=== PATIENT | female | born 1945 | race Caucasian/White ===

== ENCOUNTER → 2016-10-27 | Outpatient (CLI) | payer MEDICARE, OTHER ==
--- NOTE | 2016-10-27 10:59 | BD ---
EXAMINATION TYPE: MG DEXA axial skeleton. DATE OF EXAM: 10/27/2016 10:44 AM COMPARISON: 08.26.2013 DEXA bone scan. CLINICAL HISTORY: M85.9 KNOWN OSTEOPENIA Height: 64.3 Weight: 157 FRAX RISK QUESTIONS: Alcohol (3 or more units per day): NO Family History (Parent hip fracture): YES...AND BROKEN HIP ALSO Glucocorticoids (More than 3mos): NO (Ex: prednisone, prednisolone, methylprednisolone, dexamethasone, and hydrocortisone). History of Fracture in Adulthood: NO Secondary Osteoporosis: NO 1. Type 1 Diabetes: NO 2. Hyperthyroidism: NO 3. Menopause before 45: NO 4. Malnutrition: NO 5. Chronic liver disease: NO Rheumatoid Arthritis: NO Current Tobacco Use: NO RISK FACTORS HISTORY OF: Family History of Osteoporosis: YES HER PATERNAL AUNT, WITH A BROKEN HIP Active: SOMEWHAT Diet low in dairy products/other sources of calcium: NO Postmenopausal woman: YES ABOUT 51 YRS OLD Adrenal Insufficiency: NO MEDICATIONS: Additional Medications: CALCIUM AND VITAMIN D, BP MEDS, Additional History: NONE TO NOTE EXAM MEASUREMENTS: Bone mineral densitometry was performed using the [employer] System. Bone mineral density as measured about the Lumbar spine is: ----- L1-L4(G/cm2): 1.006 T Score Values are as follows: ----- L1: -0.7 ----- L2: -1.6 ----- L3: -1.8 ----- L4: -1.7 ----- L1-L4: -1.5 Bone mineral density has: Decreased -1.6% since study of: 08.26.2013 Bone mineral density about the R hip (g/cm2): 0.832 Bone mineral density about the L hip (g/cm2): 0.841 T Score values are as follows: -----R Neck: -1.1 -----L Neck: -1.3 -----R Intertrochanter: -2.0 -----L Intertrochanter: -1.9 Bone mineral density has: Decreased -4.1% since study of: 08.26.2013 FRAX %'S: 15.6% FOR A MAJOR OSTEOPOROTIC FX AND 4.8% FOR A HIP FX.......PROBABILITY IN 10 YRS RACHELLE E IMPRESSION: Osteopenia (T Score between -2.5 and -1 as noted by T score values in the low back and both hips omar ins present. Bone density is slightly decreased or diminished from prior. There remains slightly inc reased risk of fracture and the patient may be considered for treatment. Re-Screen 1-2 years. NOTE: T-SCORE=SD OF THE YOUNG ADULT MEAN.
--- NOTE | 2016-10-28 11:11 | MM ---
Reason for exam: screening (asymptomatic). Last mammogram was performed 1 year and 1 month ago. History: Patient is postmenopausal. Family history of breast cancer in mother at age 80. Benign stereotactic core biopsy of the left breast, December 09, 1998. Core biopsy of the left breast. Physical Findings: A clinical breast exam by your physician is recommended on an annual basis and results should be correlated with mammographic findings. MG 3D Screening Mammo W/Cad Bilateral CC and MLO view(s) were taken. Prior study comparison: September 22, 2015, bilateral MG screening mammo w CAD. September 18, 2014, bilateral MG screening mammo w CAD. There are scattered fibroglandular densities. Previous mammotome biopsy in the left breast. There is chronic nodularity bilaterally. Asymmetric breast tissue in the right breast. No significant changes when compared with prior studies. ASSESSMENT: Benign, BI-RAD 2 RECOMMENDATION: Routine screening mammogram of both breasts in 1 year.
== END | disposition home or self-care (01) ==
LOC: RADMAMWWP 10:03
PROVIDERS: ATTEND Obstetrics & Gynecology
DX: Z12.31 Encounter for screening mammogram for malignant neoplasm of breast (principal); M85.88 Other specified disorders of bone density and structure, other site
CPT/HCPCS: 77080; 77063; G0202

== ENCOUNTER → 2016-11-08 | Outpatient (CLI) | payer MEDICARE, OTHER ==
[2016-11-08 12:56] LABS: Blood Urea Nitrogen 18 mg/dL (7-17); Non-African American GFR(MDRD) >60 (>60 ml/min/1.73 sqM)
--- NOTE | 2016-11-08 13:57 | CT ---
EXAMINATION TYPE: CT abdomen pelvis w con DATE OF EXAM: 11/08/2016 1:39 PM HISTORY: Mid Abd pain with bowel changes per patient. CT DLP: 710.6mGycm Automated Exposure Control for Dose Reduction was Utilized. CONTRAST: CT scan of the abdomen and pelvis is performed with IV Contrast, patient injected with 100 mL of Omni paque 300. COMPARISON: None. FINDINGS: LUNG BASES: Heart size is mildly enlarged. Dependent atelectasis in both lung bases is present. LIVER/GB: No significant abnormality is appreciated. PANCREAS: No significant abnormality is seen. SPLEEN: No significant abnormality is seen. ADRENALS: No significant abnormality is seen. KIDNEYS: There is 2 mm nonobstructing calculus lower pole level left kidney seen on coronal image 48. Symmetric cortical medullary uptake and excretion from both kidneys without evidence of hydronephros is bilaterally. There is subcentimeter low dense lesion that is too small to further characterize upp er pole level right kidney on series 5 image 22 presumed benign. BOWEL: The oral contrast reaches level of the distal sigmoid colon. There is no suspicious small or l arge bowel dilatation seen. Normal contrast-filled appendix is noted. Sigmoid colonic diverticulosis is present. There is no convincing CT evidence for acute diverticulitis. UTERUS/ADNEXA: Prominent right-sided pelvic phlebolith is seen on axial image 77. Uterus and both ova krystin are unremarkable. LYMPH NODES: No greater than 1cm abdominal or pelvic lymph nodes are appreciated. OSSEOUS STRUCTURES: No significant abnormality is seen. OTHER: No significant additional abnormality is seen. IMPRESSION: No significant acute finding is seen to account for patient's clinical symptoms.
== END | disposition home or self-care (01) ==
LOC: RADCTMAIN 12:19
PROVIDERS: ATTEND Family Medicine
DX: R10.9 Unspecified abdominal pain (principal)
CPT/HCPCS: 82565; 84520; 74177; 36415; Q9967

== ENCOUNTER → 2017-12-08 | Outpatient (CLI) | payer MEDICARE, OTHER ==
[2017-12-08 16:24] LABS: Gliadin AB IgA, Unit <0.2 U/mL
--- NOTE | 2017-12-11 07:18 | MM ---
Reason for exam: screening (asymptomatic). Last mammogram was performed 1 year and 1 month ago. History: Patient is postmenopausal. Family history of breast cancer in mother at age 80. Benign stereotactic core biopsy of the left breast, December 09, 1998. Core biopsy of the left breast. Physical Findings: A clinical breast exam by your physician is recommended on an annual basis and results should be correlated with mammographic findings. MG Screening Mammo w CAD Bilateral CC and MLO view(s) were taken. Prior study comparison: October 27, 2016, bilateral MG 3d screening mammo w/cad. September 22, 2015, bilateral MG screening mammo w CAD. The breast tissue is heterogeneously dense. This may lower the sensitivity of mammography. Previous mammotome biopsy in the left breast. There is chronic nodularity bilaterally. There is no discrete abnormality. ASSESSMENT: Benign, BI-RAD 2 RECOMMENDATION: Routine screening mammogram of both breasts in 1 year.
== END | disposition home or self-care (01) ==
LOC: RADMAMWWP 10:24
PROVIDERS: ATTEND Obstetrics & Gynecology
DX: Z12.31 Encounter for screening mammogram for malignant neoplasm of breast (principal); K58.0 Irritable bowel syndrome with diarrhea
CPT/HCPCS: 77067; 83516; 85652; 86140

== ENCOUNTER → 2018-12-13 | Outpatient (CLI) | payer MEDICARE ==
--- NOTE | 2018-12-14 12:57 | MM ---
Reason for exam: screening (asymptomatic). Last mammogram was performed 1 year ago. History: Patient is postmenopausal. Family history of breast cancer in mother at age 80. Benign stereotactic core biopsy of the left breast, December 09, 1998. Core biopsy of the left breast. Physical Findings: A clinical breast exam by your physician is recommended on an annual basis and results should be correlated with mammographic findings. MG 3D Screening Mammo W/Cad Bilateral CC and MLO view(s) were taken. Prior study comparison: December 08, 2017, bilateral MG screening mammo w CAD. October 27, 2016, bilateral MG 3d screening mammo w/cad. The breast tissue is heterogeneously dense. This may lower the sensitivity of mammography. Previous mammotome biopsy in the left breast. There is chronic nodularity in the left breast. There is no discrete abnormality. ASSESSMENT: Benign, BI-RAD 2 RECOMMENDATION: Routine screening mammogram of both breasts in 1 year.
== END | disposition home or self-care (01) ==
LOC: RADMAMWWP 12:47
PROVIDERS: ATTEND Obstetrics & Gynecology
DX: Z12.31 Encounter for screening mammogram for malignant neoplasm of breast (principal)
CPT/HCPCS: 77063; 77067

== ENCOUNTER → 2018-12-14 | Outpatient (CLI) | payer MEDICARE ==
--- NOTE | 2018-12-17 13:12 | BD ---
EXAMINATION TYPE: Axial Bone Density DATE OF EXAM: 12/14/2018 COMPARISON: NONE CLINICAL HISTORY: Height: Weight: FRAX RISK QUESTIONS: Alcohol (3 or more units per day): Family History (Parent hip fracture): Glucocorticoids (More than 3mos): (Ex: prednisone, prednisolone, methylprednisolone, dexamethasone, and hydrocortisone). History of Fracture in Adulthood: Secondary Osteoporosis: 1. Type 1 Diabetes: no 2. Hyperthyroidism: no 3. Menopause before 45: no 4. Malnutrition: no 5. Chronic liver disease: no Rheumatoid Arthritis: no Current Tobacco Use: no RISK FACTORS HISTORY OF: Family History of Osteoporosis: yes Active: yes Diet low in dairy products/other sources of calcium: no Postmenopausal woman: age 48 Lost more than 2 inches in height since high school: no MEDICATIONS: losartan, zinc, restasis, atorvastatin, hydrocortisone cream, vitamins, triamcinolone, r equip Additional History: EXAM MEASUREMENTS: Bone mineral densitometry was performed using the [employer] System. Bone mineral density as measured about the Lumbar spine is: ----- L1-L4(G/cm2): 1.005 T Score Values are as follows: ----- L2: -1.9 ----- L3: -1.3 ----- L4: -1.7 ----- L1-L4: -1.5 Bone mineral density has: increased 0.7 % since study of: 04.29.2017 Bone mineral density about the R hip (g/cm2): 0.916 Bone mineral density about the L hip (g/cm2): 0.880 T Score values are as follows: -----R Neck: -0.9 -----L Neck: -1.1 -----R Total: -1.3 -----L Total: -1.6 Bone mineral density has: decreased-1.0 % since study of: 04.29.2017 IMPRESSION: Osteopenia NOTE: T-SCORE=SD OF THE YOUNG ADULT MEAN.
== END | disposition home or self-care (01) ==
LOC: RADBDWWP 14:06
PROVIDERS: ATTEND Obstetrics & Gynecology
DX: M85.851 Other specified disorders of bone density and structure, right thigh (principal); M85.852 Other specified disorders of bone density and structure, left thigh; M85.88 Other specified disorders of bone density and structure, other site
CPT/HCPCS: 77080

== ENCOUNTER → 2020-02-24 | Outpatient (CLI) | payer MEDICARE ==
--- NOTE | 2020-02-26 10:23 | MM ---
Reason for exam: screening (asymptomatic). Last mammogram was performed 1 year and 2 months ago. History: Patient is postmenopausal. Family history of breast cancer in mother at age 80. Benign stereotactic core biopsy of the left breast, December 09, 1998. Core biopsy of the left breast. Physical Findings: A clinical breast exam by your physician is recommended on an annual basis and results should be correlated with mammographic findings. MG 3D Screening Mammo W/Cad Bilateral CC and MLO view(s) were taken. Prior study comparison: December 13, 2018, bilateral MG 3d screening mammo w/cad. December 08, 2017, bilateral MG screening mammo w CAD. Previous mammotome biopsy in the left breast. Focal asymmetry right breast. ASSESSMENT: Benign, BI-RAD 2 RECOMMENDATION: Routine screening mammogram of both breasts in 1 year.
== END | disposition home or self-care (01) ==
LOC: RADMAMWWP 10:30
PROVIDERS: ATTEND Obstetrics & Gynecology
DX: Z12.31 Encounter for screening mammogram for malignant neoplasm of breast (principal)
CPT/HCPCS: 77063; 77067

== ENCOUNTER → 2021-02-24 | Outpatient (CLI) | payer MEDICARE ==
--- NOTE | 2021-02-25 14:50 | MM ---
Reason for exam: screening (asymptomatic). Last mammogram was performed 1 year ago. History: Patient is postmenopausal. Family history of breast cancer in mother at age 80. Benign stereotactic core biopsy of the left breast, December 09, 1998. Core biopsy of the left breast. Took hormonal contraceptives for 4 years. Physical Findings: A clinical breast exam by your physician is recommended on an annual basis and results should be correlated with mammographic findings. MG 3D Screening Mammo W/Cad Bilateral CC and MLO view(s) were taken. Prior study comparison: February 24, 2020, bilateral MG 3d screening mammo w/cad. December 13, 2018, bilateral MG 3d screening mammo w/cad. There are scattered fibroglandular densities. Left biopsy clip. ASSESSMENT: Benign, BI-RAD 2 RECOMMENDATION: Routine screening mammogram of both breasts in 1 year.
== END | disposition home or self-care (01) ==
LOC: RADMAMWWP 10:51
PROVIDERS: ATTEND Obstetrics & Gynecology
DX: Z12.31 Encounter for screening mammogram for malignant neoplasm of breast (principal)
CPT/HCPCS: 77063; 77067

== ENCOUNTER → 2022-02-25 | Outpatient (CLI) | payer MEDICARE ==
--- NOTE | 2022-02-28 08:14 | MM ---
Reason for Exam: Screening (asymptomatic). Last screening mammogram was performed 12 month(s) ago. Patient History: Menarche at age 12. First Full-Term at age 24. Postmenopausal. Patient used Hormonal Contraceptives for 4 years. Core Biopsy on the Left side. 12/09/1998, Benign Stereotactic Core Biopsy on the left side. Mother had breast cancer, age 80. Risk Values: Lis 5 year model risk: 4.6%. NCI Lifetime model risk: 8.1%. Prior Study Comparison: 10/27/2016 Bilateral Screening Mammogram, [facility]. 12/08/2017 Bilateral Screening Mammogram, [facility]. 12/13/2018 Bilateral Screening Mammogram, [facility]. 02/24/2020 Bilateral Screening Mammogram, [facility]. 02/24/2021 Bilateral Screening Mammogram, [facility]. Tissue Density: There are scattered fibroglandular densities. Findings: Analyzed By CAD. There is a clip in the left breast. There is no suspicious group of microcalcifications or new suspicious mass in either breast. Overall Assessment: Negative, BI-RAD 1 Management: Screening Mammogram of both breasts in 1 year. A clinical breast exam by your physician is recommended on an annual basis and results should be correlated with mammographic findings. Electronically signed and approved by: Reilly Lantigua DO
--- NOTE | 2022-02-28 11:34 | BD ---
EXAMINATION TYPE: Axial Bone Density DATE OF EXAM: 02/25/2022 COMPARISON: NONE CLINICAL HISTORY: 76 year old Female. ICD-10 CODE: M85.88 DISORDER OF BONE Height: 65 Weight: 148.2 FRAX RISK QUESTIONS: Alcohol (3 or more units per day): no Family History (Parent hip fracture): no Glucocorticoids (More than 3mos): no (Ex: prednisone, prednisolone, methylprednisolone, dexamethasone, and hydrocortisone). History of Fracture in Adulthood: no Secondary Osteoporosis: 1. Type 1 Diabetes: no 2. Hyperthyroidism: no 3. Menopause before 45: no 4. Malnutrition: no 5. Chronic liver disease: no Rheumatoid Arthritis: no Current Tobacco Use: no RISK FACTORS HISTORY OF: Surgery to Spine/Hip(right/left)/Wrist (right/left): no Family History of Osteoporosis: no Active: no Diet low in dairy products/other sources of calcium: no Postmenopausal woman: yes Lost more than 2 inches in height since high school: no MEDICATIONS: calcium Additional History: EXAM MEASUREMENTS: Bone mineral densitometry was performed using the [employer] System. Bone mineral density as measured about the Lumbar spine is: ----- L1-L4(G/cm2): 0.979 T Score Values are as follows: ----- L1: -1.2 ----- L2: -1.8 ----- L3: -1.6 ----- L4: -2.1 ----- L1-L4: -1.7 Bone mineral density has: decreased -1.8 % since study of: 10.27.2016 Bone mineral density about the R hip (g/cm2): 0.808 Bone mineral density about the L hip (g/cm2): .0816 T Score values are as follows: -----R Neck: -1.7 -----L Neck: -1.6 -----R Total: -1.6 -----L Total: -1.7 Bone mineral density has: decreased -4.3 % since study of: 10.27.2016 FRAX%s: The graph provided illustrates a 13.5% chance for a major osteoporotic fx and a 3.3% chance f or the hips probability for fx in 10 years time. IMPRESSION: Osteopenia (T Score between -2.5 and -1). There is slightly increased risk of fracture and the patient may be considered for treatment. Re-Screen 2-5 years. NOTE: T-SCORE=SD OF THE YOUNG ADULT MEAN.
== END | disposition home or self-care (01) ==
LOC: RADMAMWWP 13:19
PROVIDERS: ATTEND Obstetrics & Gynecology
DX: Z12.31 Encounter for screening mammogram for malignant neoplasm of breast (principal); M85.88 Other specified disorders of bone density and structure, other site
CPT/HCPCS: 77063; 77067; 77080

== ENCOUNTER → 2022-04-26 | Outpatient (CLI) | payer MEDICARE ==
--- NOTE | 2022-04-26 11:56 | CT ---
EXAMINATION TYPE: CT sinus wo con DATE OF EXAM: 04/26/2022 COMPARISON: None HISTORY: sinusitis CT DLP: 588 mGycm. Automated Exposure Control for Dose Reduction was Utilized. TECHNIQUE: CT scan of the sinuses is performed without contrast, axial images are obtained, coronal r eformatted images are also reviewed. FINDINGS: The paranasal sinuses including the frontal, ethmoid, sphenoid, and maxillary sinuses bila terally are well-aerated without abnormal opacification. Nasal septal deviation. The ostiomeatal com plex is patent bilaterally on the coronal images. Visualized portion of mastoid air cells show no abnormal opacification. The globes are intact bilate rally. Degenerative changes noted intracranially. Dental artifact limits portions of the field of vi ew secondary to the artifact IMPRESSION: 1. The sinuses are clear and the ostiomeatal complex is patent bilaterally. 2. Nasal septal deviation.
== END | disposition home or self-care (01) ==
LOC: RADCTMAIN 11:14
PROVIDERS: ATTEND Otolaryngology
DX: J32.9 Chronic sinusitis, unspecified (principal)
CPT/HCPCS: 70486

== ENCOUNTER 2023-01-08 21:04 | Inpatient (IN) | payer MEDICARE ==
[2023-01-08] MEDS ORDERED: NITROGLYCERIN OINT 1 INCH/GM PACKET TOPICAL STA (21:26)
[2023-01-08] MEDS ORDERED: FUROSEMIDE 10 MG/ML 4 ML VIAL IV STA (21:35)
[2023-01-08 21:52] LABS: Basophils % (A) 0 %; Eosinophils # (A) 0.1 k/uL (0-0.7); Eosinophils % (A) 1 %; HCT 39.4 % (34.0-46.0); HGB 12.7 gm/dL (11.4-16.0); Hypochromasia Slight; Lymphocytes % (A) 28 %; MCHC 32.1 g/dL (31.0-37.0); MCV 99.7 fL (80.0-100.0); Mean Platelet Volume 10.3; Monocytes # (A) 0.6 k/uL (0-1.0); Monocytes % (A) 5 %; Neutrophils % (A) 64 %; Platelet Count 242 k/uL (150-450); RBC 3.95 m/uL (3.80-5.40); RDW 14.3 % (11.5-15.5); WBC 10.9 k/uL (3.8-10.6)
--- NOTE | 2023-01-08 21:55 | XR ---
EXAMINATION TYPE: XR chest 2V DATE OF EXAM: 01/08/2023 9:49 PM COMPARISON: No relevant priors TECHNIQUE: XR chest 2V . CLINICAL INDICATION:Female, 77 years old with history of difficulty breathing; FINDINGS: Lungs/Pleura: Hazy appearance of the mid to lower lobes bilaterally suggestive of interstitial edema. Blunting of the bilateral costophrenic angles suggesting at least a small pleural effusion. No pneum othorax. Pulmonary vascularity: Mild pulmonary vascular congestion. Heart/mediastinum: Cardiomediastinal silhouette is enlarged. Musculoskeletal: Multiple level degenerative disc disease changes seen throughout the spine. IMPRESSION: Cardiomegaly, pulmonary vascular congestion and bilateral pleural effusions. Correlate with BNP for c ongestive heart failure.
[2023-01-08 22:04] LABS: Albumin 3.9 g/dL (3.5-5.0); Calcium 9.1 mg/dL (8.4-10.2); Total Bilirubin 1.1 mg/dL (0.2-1.3); Total Protein 6.9 g/dL (6.3-8.2)
[2023-01-08] MEDS ORDERED: ONDANSETRON 4 MG/2 ML VIAL IVP STA ×2 (22:07→22:08)
[2023-01-08 22:08] LABS: Potassium 5.6 mmol/L (3.5-5.1)
[2023-01-08 22:47] LABS: INR 1.2 (<1.2)
[2023-01-08 22:50] LABS: Partial Thromboplastin Time 18.6 sec (22.0-30.0)
[2023-01-08 23:12] LABS: VBG PH 7.19 (7.31-7.41)
--- NOTE | 2023-01-09 00:13 | ED ---
General Adult HPI - General Chief complaint: Shortness of Breath Stated complaint: Shortness of breath Time Seen by Provider: 01/08/23 21:18 Source: patient, family (spouse), EMS, RN notes reviewed Mode of arrival: EMS Limitations: no limitations - History of Present Illness Initial comments: Patient is a 77-year-old female presenting to the emergency room via EMS with worsening shortness of breath throughout the day today. Per EMS she was hypoxic with oxygen saturations in the 70s on room air along their arrival with good oxygenation to 92% with the application of 2 L nasal cannula. She also received nebulized treatments by EMS. She recently was diagnosed with congestive heart failure approximately 3 weeks ago by her copier field service technician and underwent an echocardiogram by him as well with an overnight stay at [facility]. Her echocardiogram report is present with the family which demonstrates normal systolic function ejection fraction 55-60% with grade 1 diastolic dysfunction. She reports chest pressure with the inability to take in a deep breath, she denies any reproducible chest pain. She has orthopnea and bilateral lower extr emity edema along with ascites which she reports has slowly worsen despite adherence to her recently prescribed diuretic Bumex for her newly diagnosed congestive heart failure. She reports that she had had some mild shortness of breath with sudden increase in shortness of breath earlier prior to calling EMS for transportation to the hospital. She complains of abdominal pain related to her swelling and nausea without vomiting, she also reports some constipation. She denies any cough, congestion, headache, dizziness, confusion, weakness, fevers or chills. In addition to her newly diagnosed congestive heart failure she has a past medical history significant for multiple myeloma, hyperlipidemia, hypertension and osteoarthritis. - Related Data Allergies Allergy/AdvReac Type Severity Reaction Status Date / Time adhesive Allergy Rash/Hives Verified 01/08/23 21:33 Penicillins AdvReac Diarrhea Verified 01/08/23 21:32 Review of Systems ROS Statement: Those systems with pertinent positive or pertinent negative responses have been documented in the HPI. ROS Other: All systems not noted in ROS Statement are negative. Past Medical History Past Medical History: Cancer, Heart Failure, Hyperlipidemia, Hypertension, Osteoarthritis (OA) Additional Past Medical History / Comment(s): Multiple Myeloma, covid History of Any Multi-Drug Resistant Organisms: None Reported Past Surgical History: Bladder Surgery Past Psychological History: Anxiety Smoking Status: Never smoker Past Alcohol Use History: None Reported Past Drug Use History: None Reported General Exam Limitations: no limitations General appearance: alert, in no apparent distress Head exam: Present: atraumatic, normocephalic, normal inspection Eye exam: Present: normal appearance, PERRL, EOMI. Absent: scleral icterus, conjunctival injection, periorbital swelling ENT exam: Present: normal exam, mucous membranes moist Neck exam: Present: normal inspection Respiratory exam: Present: rales, decreased breath sounds, other (Hypoxemia and orthopnea. Tachypnea improved with supplemental oxygen.). Absent: wheezes, rhonchi, chest wall tenderness, accessory muscle use Cardiovascular Exam: Present: regular rate, normal rhythm, normal heart sounds. Absent: systolic murmur, diastolic murmur, rubs, gallop, clicks GI/Abdominal exam: Present: distended, normal bowel sounds. Absent: tenderness, guarding, rebound Rectal exam: Present: deferred Extremities exam: Present: pedal edema (Bilateral +3) Back exam: Present: normal inspection Neurological exam: Present: alert, oriented X3, CN II-XII intact Psychiatric exam: Present: normal affect, normal mood Skin exam: Present: dry, intact, pallor. Absent: rash Course Vital Signs 01/08/23 01/08/23 01/09/23 21:15 22:38 00:00 Temperature 97.3 F L Pulse Rate 106 H 105 H 99 Respiratory 32 H 22 18 Rate Blood Pressure 103/81 98/79 96/58 O2 Sat by Pulse 95 91 L 97 Oximetry Medical Decision Making - Medical Decision Making Was pt. sent in by a medical professional or institution (, PA, PROCESS PLANNER, urgent care, hospital, or usp...) When possible be specific @ -No Did you speak to anyone other than the patient for history (EMS, parent, family, police, friend...)? What history was obtained from this source @ -Yes, spoke with EMS regarding history of presenting illness and presentation at home. Spoke with spouse at bedside regarding further details of current illness past medical history, current medications and most recent hospitalization. Did you review nursing and triage notes (agree or disagree)? Why? @ -I reviewed and agree with nursing and triage notes Were old charts reviewed (outside hosp., previous admission, EMS record, old EKG, old radiological studies, urgent care reports/EKG's, usp records)? Report findings @ -Yes, reviewed 2-D echo report patient had with her from 12/20/2022 which revealed normal systolic function ejection fraction 55-60% with grade 1 diastolic dysfunction. Stress test from [facility] a 2020 also reviewed which was nonischemic without any ST changes. Differential Diagnosis (chest pain, altered mental status, abdominal pain women, abdominal pain men, vaginal bleeding, weakness, fever, dyspnea, syncope, headache, dizziness, GI bleed, back pain, seizure, CVA, palpatations, mental health, musculoskeletal)? @ -Differential Dyspnea: Coronary syndrome, arrhythmia, tamponade, asthma, COPD, pulmonary embolism, pneumonia, pneumothorax, pulmonary effusion, anaphylaxis, diabetic ketoacidosis, flailed chest, pulmonary contusion, diaphragmatic rupture, anemia, neuromuscular, this is not meant to be an all-inclusive list. EKG interpreted by me (3pts min.). @ -First EKG completed at [address] sinus [address] with moderate ST depression in lead II and aVF ventricular rate 108 bpm, AL interval 177 ms, QRS duration 114 ms, QT/QTC 346/409 ms, PRT axes 106, 30, 71 Second EKG EKG completed at 2249 demonstrates time and states tachycardia with again present ST depression in leads 2 and aVF without any significant change compared to 2120 times EKG. Ventricular rate 108 bpm, AL interval 177 ms, QRS duration 144 ms, QT/QTC X-rays interpreted by me (1pt min.). @ -Chest x-ray demonstrates bibasilar vascular congestion and right midlobe congestion along with bilateral small pleural effusions. CT interpreted by me (1pt min.). @ -CT angiogram chest: No pulmonary emboli, bilateral bibasilar consolidation and bilateral pleural effusion. U/S interpreted by me (1pt. min.). @ -Ultrasound of the liver and limited abdomen for ascites completed not interpreted by me report per radiologist shows biliary sludge, hepatic megaly, common bile duct 0.6 cm and small ascites along with right pleural effusion. What testing was considered but not performed or refused? (CT, X-rays, U/S, labs)? Why? @ -None What meds were considered but not given or refused? Why? @ -None Did you discuss the management of the patient with other professionals (duarte hatch i.eTahira Matt, PA, PROCESS PLANNER, lab, RT, psych nurse, social work lecturer, heel finisher, teacher, correction officer head, manager rn case)? Give summary @ -Yes, spoke with vacuum drier tender Dr. Wade regarding patient's presentation and concern for decompensation. He is agreeable to placement in stepdown unit no ny ed for ICU admission. Spoke with Dr. Page regarding patient's presentation and workup along with treatment provided advising recommended admission to stepdown unit for close monitoring and continued treatment for volume overload, he is accepting of admission and denies any further orders at this time. Was smoking cessation discussed for >3mins.? @ -No Was critical care preformed (if so, how long)? @ -35 minutes Were there social determinants of health that impacted care today? How? (Homelessness, low income, unemployed, alcoholism, drug addiction, transportation, low edu. Level, literacy, decrease access to med. care, longterm, rehab)? @ -No Was there de-escalation of care discussed even if they declined (Discuss DNR or withdrawal of care, Hospice)? DNR status @ -Discussed CODE STATUS at length; at this time patient wishes to remain a ful l code and is aware that if further respiratory decline occurs intubation may be necessary during this hospitalization. What co-morbidities impacted this encounter? (DM, HTN, Smoking, COPD, CAD, Cancer, CVA, ARF, Chemo, Hep., AIDS, mental health diagnosis, sleep apnea, morbid obesity)? @ -None Was patient admitted / discharged? Hospital course, mention meds given and route, prescriptions, significant lab abnormalities, going to OR and other pertinent info. @ -77-year-old female presenting to the emergency room with worsening shortness of breath throughout the day today. Per EMS she was hypoxic with oxygen saturations in the 70s on room air along their arrival with good oxygenation to 92% with the application of 2 L nasal cannula. She also received nebulized treatments by EMS. She recently was diagnosed with congestive heart failure approximately 3 weeks ago by her copier field service technician and underwent an echocar diogram by him as well with an overnight stay at [facility]. Her echocardiogram report is present with the family which demonstrates normal systolic function ejection fraction 55-60% with grade 1 diastolic dysfunction. She has been taking Bumex as prescribed with increase in lower extremity swelling and abdominal swelling. Workup initiated with EKG, chest x-ray, CBC, CMP, lactic acid, blood cultures, coags, d-dimer, troponin, and proBNP. On oral nitrates with marginal blood pressure will defer nitro paste at this time for chest pressure and proceed with Lasix due to bilateral lower extremity edema, ascites and bibasilar crackles. Initial EKG with sinus tachycardia with ST depression. Patient with nausea with Zofran. Laboratory results demonstrate CBC with elevated WBC 10.5 no abnormaliti es including differential. Coag's show low PTT elevated INR at 1.2 with normal PT d-dimer elevated 1.64. CMP with slightly hemolyzed potassium at 5.6 sodium 135 chloride 97, carbon dioxide anion gap, BUN 20. Creatinine normal at 0.80 with elevated 331. Lactic acid elevated at 4.4 liver enzymes and alkaline phosphatase elevated AST at 38 mL to 97, alkaline phosphatase 212. ProBNP elevated at 4590, troponin elevated 0.052. Repeat EKG, repeat troponin and repeat potassium along with his blood gases ordered in addition to CTA elevated d-dimer with hypoxia enteritis. Supple oxygen titrated to 4 L to maintain oxygen saturation levels greater than 92%. There is definite pain involved in care and presents as a proceeded. Due to elevated liver enzymes will proceed with ultrasound of the abdomen and liver. Venous blood gases reveal pH of 7.9 with a pCO2 of 61 and a bicarb of 23. Degenerative saturation with nasal cannula oxygen and low blood pressure improved with BiPAP at this time. Repeat EKG shows continued ST depression without ST elevation or significant worsening ST depression. Chest x-ray demonstrates bibasilar pulmonary edema.. Bilateral lung coburn and small bilateral effusions. Nausea improved with Zofran. Ultrasound of the abdomen revealed small ascites. Hepatomegaly, biliary sludge, small right pleural effusion. Repeat troponin elevated 0.5. No indication for further abdominal imaging at this time. CT of the chest angio redemonstrates bilateral vascular congestion and pleural effusion. No evidence of pulmonary emboli. Patient continues to maintain oxygenation levels while on 4 L nasal cannula 96 and 98% with no evidence of respiratory distress on exam. Above findings discussed with patient and spouse and son at length. Advised due to concern for decompensation and low blood pressure along with fluctuating oxygenation levels recommend stepdown admission for continued IV Lasix for congestive heart failure. CODE STATUS reviewed and patient wishes to remain a full code. Spoke with Dr. Wade the vacuum drier tender communications station manager regarding patient presentation and concern for decompensation. He is agreeable to stepdown placement no need for ICU placement at this time. Spoke with Dr. Page on for [facility] services covering for patient's primary care provider Dr. Hanna regarding patient's presentation, workup, laboratory results and treatment to this point advised recommendation to stepdown unit for close monitoring and continued evaluation and treatment of congestive heart failure. He is accepting of admission and denies any further orders at this time. Will repeat troponin and furosemide dosing at [address] orders for echocardiogram in addition to admission orders. Will admit patient in serious condition to stepdown unit under [facility] services for further evaluation and treatment of congestive heart failure. Undiagnosed new problem with uncertain prognosis? @ -No Drug Therapy requiring intensive monitoring for toxicity (Heparin, Nitro, Insulin, Cardizem)? @ -No Were any procedures done? @ -No Diagnosis/symptom? @ -Acute congestive heart Acute, or Chronic, or Acute on Chronic? @ -Acute on chronic Uncomplicated (without systemic symptoms) or Complicated (systemic symptoms)? @ -Complicated Side effects of treatment? @ -No Exacerbation, Progression, or Severe Exacerbation? @ -Severe exacerbation Poses a threat to life or bodily function? How? (Chest pain, [place], NH, pneumonia, PE, COPD, DKA, ARF, appy, cholecystitis, CVA, Diverticulitis, Homicidal, Suicidal, threat to staff... and all critical care pts) @ -No Case discussed with Dr. Short. - Lab Data Result diagrams: 01/08/23 21:35 01/08/23 23:03 Lab Results 01/08/23 01/08/23 01/08/23 Range/Units 21:35 21:35 21:35 WBC 10.9 H (3.8-10.6) k/uL RBC 3.95 (3.80-5.40) m/uL Hgb 12.7 (11.4-16.0) gm/dL Hct 39.4 (34.0-46.0) % MCV 99.7 (80.0-100.0) fL MCH 32.0 (25.0-35.0) pg MCHC 32.1 (31.0-37.0) g/dL RDW 14.3 (11.5-15.5) % Plt Count 242 (150-450) k/uL MPV 10.3 Neutrophils % 64 % Lymphocytes % 28 % Monocytes % 5 % Eosinophils % 1 % Basophils % 0 % Neutrophils # 7.0 (1.3-7.7) k/uL Lymphocytes # 3.0 (1.0-4.8) k/uL Monocytes # 0.6 (0-1.0) k/uL Eosinophils # 0.1 (0-0.7) k/uL Basophils # 0.0 (0-0.2) k/uL Hypochromasia Slight PT 12.0 (9.0-12.0) sec INR 1.2 H (<1.2) APTT 18.6 L (22.0-30.0) sec D-Dimer 1.64 H (<0.60) mg/L FEU VBG pH (7.31-7.41) VBG pCO2 (37-51) mmHg VBG HCO3 (24-28) mmol/L Sodium 135 L (137-145) mmol/L Potassium 5.6 H (3.5-5.1) mmol/L Chloride 97 L (98-107) mmol/L Carbon Dioxide 22 (22-30) mmol/L Anion Gap 16 mmol/L BUN 23 H (7-17) mg/dL Creatinine 0.80 (0.52-1.04) mg/dL Est GFR (CKD-EPI)AfAm 81 (>60 ml/min/1.73 sqM) Est GFR (CKD-EPI)NonAf 71 (>60 ml/min/1.73 sqM) Glucose 331 H (74-99) mg/dL Lactic Ac Sepsis Rflx Plasma Lactic Acid Mando (0.7-2.0) mmol/L Calcium 9.1 (8.4-10.2) mg/dL Total Bilirubin 1.1 (0.2-1.3) mg/dL AST 138 H (14-36) U/L ALT 97 H (4-34) U/L Alkaline Phosphatase 212 H (38-126) U/L Troponin I (0.000-0.034) ng/mL NT-Pro-B Natriuret Pep pg/mL Total Protein 6.9 (6.3-8.2) g/dL Albumin 3.9 (3.5-5.0) g/dL 01/08/23 01/08/2301/08/23 Range/Units 21:35 21:35 21:35 WBC (3.8-10.6) k/uL RBC (3.80-5.40) m/uL Hgb (11.4-16.0) gm/dL Hct (34.0-46.0) % MCV (80.0-100.0) fL MCH (25.0-35.0) pg MCHC (31.0-37.0) g/dL RDW (11.5-15.5) % Plt Count (150-450) k/uL MPV Neutrophils % % Lymphocytes % % Monocytes % % Eosinophils % % Basophils % % Neutrophils # (1.3-7.7) k/uL Lymphocytes # (1.0-4.8) k/uL Monocytes # (0-1.0) k/uL Eosinophils # (0-0.7) k/uL Basophils # (0-0.2) k/uL Hypochromasia PT (9.0-12.0) sec INR (<1.2) APTT (22.0-30.0) sec D-Dimer (<0.60) mg/L FEU VBG pH (7.31-7.41) VBG pCO2 (37-51) mmHg VBG HCO3 (24-28) mmol/L Sodium (137-145) mmol/L Potassium (3.5-5.1) mmol/L Chloride (98-107) mmol/L Carbon Dioxide (22-30) mmol/L Anion Gap mmol/L BUN (7-17) mg/dL Creatinine (0.52-1.04) mg/dL Est GFR (CKD-EPI)AfAm (>60 ml/min/1.73 sqM) Est GFR (CKD-EPI)NonAf (>60 ml/min/1.73 sqM) Glucose (74-99) mg/dL Lactic Ac Sepsis Rflx Plasma Lactic Acid Mando 4.4 H* (0.7-2.0) mmol/L Calcium (8.4-10.2) mg/dL Total Bilirubin (0.2-1.3) mg/dL AST (14-36) U/L ALT (4-34) U/L Alkaline Phosphatase (38-126) U/L Troponin I 0.052 H* (0.000-0.034) ng/mL NT-Pro-B Natriuret Pep 4590 pg/mL Total Protein (6.3-8.2) g/dL Albumin (3.5-5.0) g/dL 01/08/23 01/08/23 01/08/23 Range/Units 22:10 23:03 23:03 WBC (3.8-10.6) k/uL RBC (3.80-5.40) m/uL Hgb (11.4-16.0) gm/dL Hct (34.0-46.0) % MCV (80.0-100.0) fL MCH (25.0-35.0) pg MCHC (31.0-37.0) g/dL RDW (11.5-15.5) % Plt Count (150-450) k/uL MPV Neutrophils % % Lymphocytes % % Monocytes % % Eosinophils % % Basophils % % Neutrophils # (1.3-7.7) k/uL Lymphocytes # (1.0-4.8) k/uL Monocytes # (0-1.0) k/uL Eosinophils # (0-0.7) k/uL Basophils # (0-0.2) k/uL Hypochromasia PT (9.0-12.0) sec INR (<1.2) APTT (22.0-30.0) sec D-Dimer (<0.60) mg/L FEU VBG pH (7.31-7.41) VBG pCO2 (37-51) mmHg VBG HCO3 (24-28) mmol/L Sodium (137-145) mmol/L Potassium 4.4 (3.5-5.1) mmol/L Chloride (98-107) mmol/L Carbon Dioxide (22-30) mmol/L Anion Gap mmol/L BUN (7-17) mg/dL Creatinine (0.52-1.04) mg/dL Est GFR (CKD-EPI)AfAm (>60 ml/min/1.73 sqM) Est GFR (CKD-EPI)NonAf (>60 ml/min/1.73 sqM) Glucose (74-99) mg/dL Lactic Ac Sepsis Rflx Y Plasma Lactic Acid Mando (0.7-2.0) mmol/L Calcium (8.4-10.2) mg/dL Total Bilirubin (0.2-1.3) mg/dL AST (14-36) U/L ALT (4-34) U/L Alkaline Phosphatase (38-126) U/L Troponin I 0.058 H* (0.000-0.034) ng/mL NT-Pro-B Natriuret Pep pg/mL Total Protein (6.3-8.2) g/dL Albumin (3.5-5.0) g/dL 01/08/23 01/09/23 Range/Units 23:03 00:34 WBC (3.8-10.6) k/uL RBC (3.80-5.40) m/uL Hgb (11.4-16.0) gm/dL Hct (34.0-46.0) % MCV (80.0-100.0) fL MCH (25.0-35.0) pg MCHC (31.0-37.0) g/dL RDW (11.5-15.5) % Plt Count (150-450) k/uL MPV Neutrophils % % Lymphocytes % % Monocytes % % Eosinophils % % Basophils % % Neutrophils # (1.3-7.7) k/uL Lymphocytes # (1.0-4.8) k/uL Monocytes # (0-1.0) k/uL Eosinophils # (0-0.7) k/uL Basophils # (0-0.2) k/uL Hypochromasia PT (9.0-12.0) sec INR (<1.2) APTT (22.0-30.0) sec D-Dimer (<0.60) mg/L FEU VBG pH 7.19 L* (7.31-7.41) VBG pCO2 61 H (37-51) mmHg VBG HCO3 23 L (24-28) mmol/L Sodium (137-145) mmol/L Potassium (3.5-5.1) mmol/L Chloride (98-107) mmol/L Carbon Dioxide (22-30) mmol/L Anion Gap mmol/L BUN (7-17) mg/dL Creatinine (0.52-1.04) mg/dL Est GFR (CKD-EPI)AfAm (>60 ml/min/1.73 sqM) Est GFR (CKD-EPI)NonAf (>60 ml/min/1.73 sqM) Glucose (74-99) mg/dL Lactic Ac Sepsis Rflx Plasma Lactic Acid Mando 3.1 H* (0.7-2.0) mmol/L Calcium (8.4-10.2) mg/dL Total Bilirubin (0.2-1.3) mg/dL AST (14-36) U/L ALT (4-34) U/L Alkaline Phosphatase (38-126) U/L Troponin I (0.000-0.034) ng/mL NT-Pro-B Natriuret Pep pg/mL Total Protein (6.3-8.2) g/dL Albumin (3.5-5.0) g/dL - Radiology Data Radiology results: report reviewed, image reviewed Disposition Clinical Impression: Congestive heart failure Disposition: ADMITTED IP TO THIS [facility] Condition: Serious Is patient prescribed a controlled substance at d/c from ED?: No Referrals: Jose Luis Pierre MD [Primary Care Provider] - 1-2 days Time of Disposition: 01:38
--- NOTE | 2023-01-09 00:43 | US ---
EXAM: US Abdomen Complete CLINICAL HISTORY: ITS.REASON US Reason: ascities; elevated alk phos TECHNIQUE: Real-time ultrasound of the abdomen with image documentation. COMPARISON: 11/08/2016 FINDINGS: Liver: The liver measures 18.1 cm. Heterogeneity of the liver. No intrahepatic bile duct dilation. Gallbladder: Sludge is noted within the gallbladder. Gallbladder wall measures 0.49 cm. Negative ultrasound graphic Lopez sign. No gallstones. Common bile duct: Common bile duct measures 0.6 cm. No stones. No dilation. Pancreas: Unremarkable as visualized. Kidneys: The right kidney measures 10.9 x 4.5 x 4.4 cm without hydronephrosis. No stones. Spleen: Unremarkable. No splenomegaly. Aorta: Unremarkable. No abdominal aortic aneurysm. Inferior vena cava: Unremarkable. Free fluid: Small quantity of ascites at the right upper quadrant. Pleural space: Small right pleural effusion. IMPRESSION: 1. Sludge within the gallbladder. 2. Gallbladder wall measures 0.49 cm and is thickened. Clinical correlation is advised. 3. Negative ultrasound graphic Lopez sign. 4. Common bile duct measures 0.6 cm and is prominent. 5. Hepatomegaly. Heterogeneity of the liver. 6. Negative ultrasound Lopez sign. 7. Small quantity of ascites. 8. Small right pleural effusion.
--- NOTE | 2023-01-09 01:05 | CT ---
EXAM: CT Angiography Chest With Intravenous Contrast CLINICAL HISTORY: ITS.REASON CT Reason: dyspnea elevated d dimer TECHNIQUE: Axial computed tomographic angiography images of the chest with intravenous contrast. CTDI is 9 mGy and DLP is 223.2 mGy-cm. This CT exam was performed using one or more of the following dose reduction techniques: automated exposure control, adjustment of the mA and/or kV according to patient size, and/or use of iterative reconstruction technique. MIP reconstructed images were created and reviewed. COMPARISON: No previous studies. FINDINGS: Pulmonary arteries: Central pulmonary arteries are unremarkable. Peripheral branches the pulmonary arteries are unremarkable. Aorta: Atherosclerotic disease of the thoracic aorta. No thoracic aortic aneurysm. Lungs: Patchy consolidation is noted at the lung bases most suggestive of by basilar pneumonia. Minimal scarring at the lung apices. Pleural space: See below. Heart: There is cardiomegaly and bilateral pleural effusions. Consider congestive heart failure. No evidence of RV dysfunction. Thyroid: Heterogeneity of the thyroid gland. Bones/joints: Moderate to severe degenerative disc disease of the thoracic spine and kyphosis. No acute fracture. No dislocation. Soft tissues: Unremarkable. Lymph nodes: Unremarkable. No enlarged lymph nodes. Liver: Fatty infiltration of the liver. IMPRESSION: 1. No central or peripheral pulmonary emboli. 2. Cardiomegaly and bilateral pleural effusions. Consider congestive heart failure. 3. Atherosclerotic disease. 4. Consolidative changes noted at the lung bases. Consider by basilar pneumonia. 5. Fatty liver. <MYCVCSECTION> Communications: 01/09/23 01:12 Call From [facility] on 01/09 01:09 (-04:00)
[2023-01-09] MEDS ORDERED: ACETAMINOPHEN TAB 325 MG TAB PO PRN (01:38)
[2023-01-09] MEDS ORDERED: ONDANSETRON 4 MG/2 ML VIAL IVP PRN (01:38)
[2023-01-09] MEDS ORDERED: NALOXONE 0.4 MG/ML 1 ML VIAL IV PRN (01:38)
[2023-01-09] MEDS ORDERED: FUROSEMIDE 10 MG/ML 4 ML VIAL IV ONE (03:00)
[2023-01-09] MEDS ORDERED: HEPARIN SODIUM 1,000 UN/ML (10ML VL) IV PRN (04:10)
[2023-01-09] MEDS ORDERED: HEPARIN SODIUM 1,000 UN/ML (10ML VL) IV ONE (04:10)
[2023-01-09] MEDS: HEPARIN SOD,PORK IN 0.45% NACL 25,000 UNIT in 0.45% NACL 1 250ML.BAG IV SCH ×2 (04:20→22:19)
[2023-01-09] MEDS: FUROSEMIDE 10 MG/ML 4 ML VIAL IV SCH ×2 (09:23→20:22)
[2023-01-09] MEDS: FAMOTIDINE 20 MG/2 ML VIAL IV SCH ×2 (09:23→20:22)
--- NOTE | 2023-01-09 10:39 | P.HPIM ---
History of Present Illness This is a pleasant 77 years old female with past medical history of Heart Failure, Hyperlipidemia, Hypertension, Osteoarthritis Patient presents because of dyspnea on for the last few days but it was worse yesterday with no coughing Patient complaining of from central chest pressure, it/10 in severity, nonradiating, no relieving or precipitating factors She denies any GI or urinary symptoms, no urgency or dysuria, no abdominal pain vomiting diarrhea, no headache weakness numbness or dizziness. Patient denies smoking or alcohol abuse Patient's PCP is Dr. Pierre and her spectroscopist is Dr. Thomas Vitals stable, blood pressure on the low side,90/59 Patient saturating 99% on 4 L oxygen via nasal cannula. Afebrile. Mild Leukocytosis 10.9. INR Is 1.2. D-Dimer Elevated at 1.6. PH low 7.1 Troponin is elevated 0.05 and 0.4 Potassium 5.6 and 4.4. Creatinine 0.8. Resolved BMP is unremarkable ProBNP was elevated 4590 Liver enzymes mildly elevated with AST 138 and 8 ALT 97. Bilirubin normal at 1.1 CTA of the chest: No pulmonary embolism. Cardiomegaly with bilateral pleural effusions, consider CHF. Atherosclerotic disease. Consolidative changes noted on the lung bases. Consider bibasilar pneumonia. Fatty liver Patient was started on heparin drip and other Lasix Review of Systems Review of systems CONSTITUTIONAL: No fever, no malaise, no fatigue. HEENT: No recent visual problems or hearing problems. Denied any sore throat. CARDIOVASCULAR: No orthopnea, PND, no palpitations, no syncope. PULMONARY: No chest wall tenderness, no hemoptysis. GASTROINTESTINAL: No diarrhea, no nausea, no vomiting, no abdominal pain. Normoactive bowel sounds. NEUROLOGICAL: No headaches, no weakness, no numbness. HEMATOLOGICAL: Denies any bleeding or petechiae. GENITOURINARY: Denies any burning micturition, frequency, or urgency. MUSCULOSKELETAL/RHEUMATOLOGICAL: Denies any joint pain, swelling, or any muscle pain. ENDOCRINE: Denies any polyuria or polydipsia. Past Medical History Past Medical History: Cancer, Heart Failure, Hyperlipidemia, Hypertension, Osteoarthritis (OA) Additional Past Medical History / Comment(s): Multiple Myeloma, covid History of Any Multi-Drug Resistant Organisms: None Reported Past Surgical History: Bladder Surgery Past Psychological History: Anxiety Smoking Status: Never smoker Past Alcohol Use History: None Reported Past Drug Use History: None Reported Medications and Allergies Allergies Allergy/AdvReac Type Severity Reaction Status Date / Time adhesive Allergy Rash/Hives Verified 01/08/23 21:33 Penicillins AdvReac Diarrhea Verified 01/08/23 21:32 Physical Exam Vitals: Vital Signs Temp Pulse Resp BP Pulse Ox 01/09/23 06:58 85/59 01/09/23 03:00 88 16 92/66 96 01/09/23 00:00 99 18 96/58 97 01/08/23 22:38 105 H 22 98/79 91 L 01/08/23 21:15 97.3 F L 106 H 32 H 103/81 95 Intake and Output 01/08/23 01/09/23 01/09/23 22:59 06:59 14:59 Output Total 600 Balance -600 Output: Urine 600 Uretheral (Nguyen) 600 Other: Weight 61.235 kg GENERAL: The patient is alert and oriented x3, not in any acute distress. Well developed, well nourished. HEENT: Pupils are round and equally reacting to light. EOMI. No scleral icterus. No conjunctival pallor. Normocephalic, atraumatic. No pharyngeal erythema. No thyromegaly. CARDIOVASCULAR: S1 and S2 present. No murmurs, rubs, or gallops. -PULMONARY: Chest is clear to auscultation, no wheezing bilateral basal crackles. ABDOMEN: Soft, nontender, nondistended, normoactive bowel sounds. No palpable organomegaly. MUSCULOSKELETAL: No joint swelling or deformity. -EXTREMITIES: No cyanosis, clubbing, bilateral pitting leg edema, 1+ NEUROLOGICAL: Gross neurological examination did not reveal any focal deficits. SKIN: No rashes. no petechiae. Results CBC & Chem 7: 01/08/23 21:35 01/08/23 23:03 Labs: Abnormal Lab Results - Last 24 Hours (Table) 01/08/23 01/08/23 01/08/23 Range/Units 21:35 21:35 21:35 WBC 10.9 H (3.8-10.6) k/uL INR 1.2 H (<1.2) APTT 18.6 L (22.0-30.0) sec D-Dimer 1.64 H (<0.60) mg/L FEU VBG pH (7.31-7.41) VBG pCO2 (37-51) mmHg VBG HCO3 (24-28) mmol/L Sodium 135 L (137-145) mmol/L Potassium 5.6 H (3.5-5.1) mmol/L Chloride 97 L (98-107) mmol/L BUN 23 H (7-17) mg/dL Glucose 331 H (74-99) mg/dL Plasma Lactic Acid Mando (0.7-2.0) mmol/L AST 138 H (14-36) U/L ALT 97 H (4-34) U/L Alkaline Phosphatase 212 H (38-126) U/L Troponin I (0.000-0.034) ng/mL 01/08/23 01/08/23 01/08/23 Range/Units 21:35 21:35 23:03 WBC (3.8-10.6) k/uL INR (<1.2) APTT (22.0-30.0) sec D-Dimer (<0.60) mg/L FEU VBG pH (7.31-7.41) VBG pCO2 (37-51) mmHg VBG HCO3 (24-28) mmol/L Sodium (137-145) mmol/L Potassium (3.5-5.1) mmol/L Chloride (98-107) mmol/L BUN (7-17) mg/dL Glucose (74-99) mg/dL Plasma Lactic Acid Mando 4.4 H* (0.7-2.0) mmol/L AST (14-36) U/L ALT (4-34) U/L Alkaline Phosphatase (38-126) U/L Troponin I 0.052 H* 0.058 H* (0.000-0.034) ng/mL 01/08/23 01/09/23 01/09/23 Range/Units 23:03 00:34 03:16 WBC (3.8-10.6) k/uL INR (<1.2) APTT (22.0-30.0) sec D-Dimer (<0.60) mg/L FEU VBG pH 7.19 L* (7.31-7.41) VBG pCO2 61 H (37-51) mmHg VBG HCO3 23 L (24-28) mmol/L Sodium (137-145) mmol/L Potassium (3.5-5.1) mmol/L Chloride (98-107) mmol/L BUN (7-17) mg/dL Glucose (74-99) mg/dL Plasma Lactic Acid Mando 3.1 H* (0.7-2.0) mmol/L AST (14-36) U/L ALT (4-34) U/L Alkaline Phosphatase (38-126) U/L Troponin I 0.448 H* (0.000-0.034) ng/mL Assessment and Plan Assessment: Acute CHF exacerbation Acute hypoxic respiratory failure Acute respiratory acidosis Elevated troponin , suspicious for non-STEMI Transaminitis , with fatty liver Hypertension Hyperlipidemia Diabetes mellitus History of GERD History of osteoarthritis Plan: Continue with IV Lasix 40 mg twice a day Continue with heparin drip Follow-up echocardiogram Cardiology consult Check liver ultrasound Labs and medication were reviewed.. Continue same treatment. Continue with symptomatic treatment. Resume home medication. Monitor labs and vitals. DVT and GI prophylaxis. Further recommendations as per clinical course of the pat ient DVT prophylaxis: heparin GI Prophylaxis: Pepcid PT/OT: Pending Prognosis is guarded
--- NOTE | 2023-01-09 12:45 | P.CRDCN ---
History of Present Illness Consult date: 01/09/23 Consult reason: shortness of breath History of present illness: The patient is a 77-year-old female who presented to the emergency room with worsening shortness of breath. The patient states it was an acute onset of weakness, fatigue, difficulty breathing. 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 She [place] [facility] [place] heart failure, where an echocardiogram was performed. She states she had been doing well after discharge up until yesterday. She states she is compliant with her medication regimen. DIAGNOSTICS: EKG shows ST depression in lead II, III, aVF, V4-V6 CT of the chest shows no evidence of pulmonary embolism. Cardiomegaly and bilateral pleural effusions noted Ultrasound abdomen shows sludge within the gallbladder Lab data: WBC 10.9, hemoglobin 12.7, hematocrit 39.4, platelet 242, d-dimer 1.64, sodium 135, potassium 4.4, BUN 23, creatinine 0.84, lactic acid 4.4, 1.6, AST 138, ALT 97, ALP 212, BNP 4590, troponin 0.05, 0.05, 0.44 PAST MEDICAL HISTORY: Heart failure, hyperlipidemia, hypertension and osteoarthritis REVIEW OF SYSTEMS: No fever or chills. No cough or expectoration. No diaphoresis. Patient denies headache, dizziness, blurred vision, double vision. Patient denies any stomach discomfort. No nausea, vomiting. No hematochezia. No hematemesis. Denies any black stools or blood in his stools. Denies dysuria or hematuria. No muscle weakness or numbness. PHYSICAL EXAMINATION: This is a 77-year-old female in no apparent distress at the time of my examination. HEENT: Head is atraumatic, normocephalic. Pupils are equal, round. Sclerae anicteric. Conjunctivae are clear. Mucous membranes of the mouth are moist. Neck is supple. There is no jugular venous distention. No carotid bruit is heard. CHEST EXAMINATION: Lungs are severely diminished to auscultation. No chest wall tenderness is noted on palpation or with deep breathing. Fine crackles in the right lower lobe HEART EXAMINATION: Heart regular rate and rhythm. S1, S2 heard. Soft systolic murmur. No gallops or rub. ABDOMEN: Soft, nontender. Bowel sounds are heard. No organomegaly noted. EXTREMITIES: 2+ peripheral pulses with no evidence of peripheral edema and no calf tenderness noted. NEUROLOGIC EXAMINATION: Patient is awake, alert and oriented x3. FINAL ASSESSMENT AND PLAN: Shortness of breath, hypoxic respiratory failure versus heart failure exacerbation History of congestive heart failure with preserved LV function Hypertension Hyperlipidemia Diabetes History of myocardial bridging PLAN: Obtain records from [facility] and [place] No need for repeat echo as one was completed 2 weeks prior Confirmed and resume home blood pressure regimen Discontinue heparin drip at 6 PM Further recommendations to be based upon clinical course I am dictating on behalf of Dr Frederick Amato's history/physical and assessment/plan. Past Medical History Past Medical History: Cancer, Heart Failure, Hyperlipidemia, Hypertension, Osteoarthritis (OA) Additional Past Medical History / Comment(s): Multiple Myeloma, covid History of Any Multi-Drug Resistant Organisms: None Reported Past Surgical History: Bladder Surgery Past Psychological History: Anxiety Smoking Status: Never smoker Past Alcohol Use History: None Reported Past Drug Use History: None Reported Medications and Allergies Allergies Allergy/AdvReac Type Severity Reaction Status Date / Time adhesive Allergy Rash/Hives Verified 01/08/23 21:33 Penicillins AdvReac Diarrhea Verified 01/08/23 21:32 Physical Exam Vitals: Vital Signs Temp Pulse Resp BP Pulse Ox 01/09/23 11:00 98.2 F 77 18 92/61 98 01/09/23 07:21 98.1 F 80 16 90/59 99 01/09/23 06:58 85/59 01/09/23 03:00 88 16 92/66 96 01/09/23 00:00 99 18 96/58 97 01/08/23 22:38 105 H 22 98/79 91 L 01/08/23 21:15 97.3 F L 106 H 32 H 103/81 95 Intake and Output 01/08/23 01/09/23 01/09/23 22:59 06:59 14:59 Intake Total 48.619 Output Total 600 1600 Balance -600 -6771.381 Intake: Intake, IV Titration 48.619 Amount Heparin Sod,Pork in 0.45% 48.619 NaCl 25,000 unit In 0.45 % NaCl 1 250ml.bag @ 12 UNITS/KG/HR 7.348 mls/hr IV .Q24H [facility] Rx#: [id number] Output: Urine 600 1600 Uretheral (Nguyen) 600 Other: Weight 61.235 kg Results 01/08/23 21:35 01/08/23 23:03 Cardiac Enzymes 01/08/23 01/08/23 01/08/23 Range/Units 21:35 21:35 23:03 AST 138 H (14-36) U/L Troponin I 0.052 H* 0.058 H* (0.000-0.034) ng/mL 01/09/23 Range/Units 03:16 AST (14-36) U/L Troponin I 0.448 H* (0.000-0.034) ng/mL Coagulation 01/08/23 01/09/23 Range/Units 21:35 09:48 PT 12.0 (9.0-12.0) sec APTT 18.6 L 27.6 (22.0-30.0) sec CBC 01/08/23 Range/Units 21:35 WBC 10.9 H (3.8-10.6) k/uL RBC 3.95 (3.80-5.40) m/uL Hgb 12.7 (11.4-16.0) gm/dL Hct 39.4 (34.0-46.0) % Plt Count 242 (150-450) k/uL Comprehensive Metabolic Panel 01/08/23 01/08/23 Range/Units 21:35 23:03 Sodium 135 L (137-145) mmol/L Potassium 5.6 H 4.4 (3.5-5.1) mmol/L Chloride 97 L (98-107) mmol/L Carbon Dioxide 22 (22-30) mmol/L BUN 23 H (7-17) mg/dL Creatinine 0.80 (0.52-1.04) mg/dL Glucose 331 H (74-99) mg/dL Calcium 9.1 (8.4-10.2) mg/dL AST 138 H (14-36) U/L ALT 97 H (4-34) U/L Alkaline Phosphatase 212 H (38-126) U/L Total Protein 6.9 (6.3-8.2) g/dL Albumin 3.9 (3.5-5.0) g/dL Current Medications Generic Name Dose Route Start Last Admin Trade Name Pakoq PRN Reason Stop Dose Admin Acetaminophen 650 mg 01/09/23 01:38 Acetaminophen Tab 325 Mg Tab PO Q6HR PRN Mild Pain or Fever > 100.5 Alprazolam 0.25 mg 01/09/23 01:38 Alprazolam 0.25 Mg Tab PO Q6HR PRN Anxiety Famotidine 20 mg 01/09/23 09:00 01/09/23 09:23 Famotidine 20 Mg/2 Ml Vial IV 20 mg Q12HR [facility] Administration Furosemide 40 mg 01/09/23 09:00 01/09/23 09:23 Furosemide 10 Mg/Ml 4 Ml Vial IV 40 mg Q12HR DANA Administration Heparin Sodium (Porcine) 0 unit 01/09/23 04:10 01/09/23 10:57 Heparin Sodium 1,000 Un/Ml (10ml Vl) IV 3,050 unit PER PROTOCOL PRN Administration Low PTT Protocol Heparin Sodium/Sodium Chloride 250 mls @ 7.348 mls/hr 01/09/23 04:15 01/09/23 10:57 25,000 unit/ Sodium Chloride IV 16.9 units/kg/hr .Q24H [facility] 10.348 mls/hr Titration Protocol 12 UNITS/KG/HR Naloxone HCl 0.2 mg 01/09/23 01:38 Naloxone 0.4 Mg/Ml 1 Ml Vial IV Q2M PRN Opioid Reversal Ondansetron HCl 4 mg 01/09/23 01:38 Ondansetron 4 Mg/2 Ml Vial IVP Q8HR PRN Nausea And Vomiting Intake and Output 01/08/23 01/09/23 01/09/23 22:59 06:59 14:59 Intake Total 48.619 Output Total 600 1600 Balance -600 -3441.381 Intake: Intake, IV Titration 48.619 Amount Heparin Sod,Pork in 0.45% 48.619 NaCl 25,000 unit In 0.45 % NaCl 1 250ml.bag @ 12 UNITS/KG/HR 7.348 mls/hr IV .Q24H [facility] Rx#: [id number] Output: Urine 600 1600 Uretheral (Nguyen) 600 Other: Weight 61.235 kg 01/08/23 21:35 01/08/23 23:03
[2023-01-09 16:22] LABS: Glucose,Whole Blood 101 mg/dL (70-110)
[2023-01-09] MEDS ORDERED: TRIAMCINOLONE 0.1% CREAM 80 GM TUBE TOPICAL PRN (16:41)
[2023-01-09] MEDS ORDERED: ALBUTEROL HFA INHALER INHALATION PRN (16:41)
[2023-01-09] MEDS ORDERED: TRIAMCINOLONE ACET 0.1% OINTMENT 15 GM TUBE TOPICAL PRN (16:41)
[2023-01-09] MEDS: cycloSPORINE 0.05% OPHTH 0.4 ML DROPERETTE BOTH EYES SCH ×2 (17:23→20:21)
[2023-01-09 20:03] LABS: Glucose,Whole Blood 162 mg/dL (70-110)
[2023-01-09] MEDS: ASCORBIC ACID 500 MG TAB PO SCH (20:22)
[2023-01-09] MEDS: MONTELUKAST 10 MG TAB PO SCH (20:22)
[2023-01-09] MEDS: ATORVASTATIN 40 MG TAB PO SCH (20:22)
[2023-01-10] MEDS: ALPRAZolam 0.25 MG TAB PO PRN ×3 (06:19→19:32)
[2023-01-10] MEDS: CHOLECALCIFEROL 125 MCG (5000 IU) TABLET PO SCH (08:41)
[2023-01-10] MEDS: LORATADINE 10 MG TAB PO SCH (08:41)
[2023-01-10] MEDS: FAMOTIDINE 20 MG/2 ML VIAL IV SCH (08:41)
[2023-01-10] MEDS: MULTIVITAMINS, THERA 1 EACH TAB PO SCH (08:41)
[2023-01-10] MEDS: FUROSEMIDE 10 MG/ML 4 ML VIAL IV SCH ×2 (08:41→19:32)
[2023-01-10] MEDS: cycloSPORINE 0.05% OPHTH 0.4 ML DROPERETTE BOTH EYES SCH ×2 (08:42→23:10)
[2023-01-10] MEDS: ASCORBIC ACID 500 MG TAB PO SCH ×2 (08:47→19:33)
[2023-01-10 08:48] LABS: Basophils % (A) 0 %; Eosinophils # (A) 0.1 k/uL (0-0.7); Eosinophils % (A) 0 %; HCT 38.1 % (34.0-46.0); HGB 12.4 gm/dL (11.4-16.0); Lymphocytes # (A) 1.3 k/uL (1.0-4.8); Lymphocytes % (A) 9 %; MCH 31.7 pg (25.0-35.0); MCHC 32.6 g/dL (31.0-37.0); MCV 97.2 fL (80.0-100.0); Mean Platelet Volume 9.3; Monocytes # (A) 0.9 k/uL (0-1.0); Monocytes % (A) 6 %; Neutrophils # (A) 13.2 k/uL (1.3-7.7); Neutrophils % (A) 85 %; Platelet Count 279 k/uL (150-450); RBC 3.92 m/uL (3.80-5.40); RDW 14.1 % (11.5-15.5); WBC 15.6 k/uL (3.8-10.6)
[2023-01-10] MEDS ORDERED: [UNRECOGNIZED DRUG - OTHER] PO SCH (09:00)
[2023-01-10 09:09] LABS: Albumin 3.7 g/dL (3.5-5.0); Bilirubin, Delta 0.1 mg/dL (0.0-0.2); Bilirubin,Unconjugated 0.5 mg/dL (0.0-1.1); Calcium 9.6 mg/dL (8.4-10.2); Potassium 4.5 mmol/L (3.5-5.1); Total Bilirubin 0.6 mg/dL (0.2-1.3); Total Protein 6.2 g/dL (6.3-8.2)
--- NOTE | 2023-01-10 11:45 | P.CNPUL ---
History of Present Illness Consult date: 01/10/23 Reason for consult: dyspnea, pleural effusion History of present illness: This is a 77-year-old female patient was hospitalized for worsening shortness of breath. She is known to have CHF with diastolic heart failure and she has been followed up by Dr. Thomas on outpatient basis. Apparently, she does not have any underlying coronary artery disease. The patient came into the hospital because of worsening shortness of breath. No cough. No pleurisy. No hemoptysis. No chest pain. Limited edema lower extremities bilaterally. The WBC count is at 10.9 with a hemoglobin of 12.7, d-dimer is at 1.64, BUN is at 23 with a creatinine of 0.8 and the proBNP level is 4590 and the troponins were 0.05 and 0.05 and 0.44 respectively 3. CTA of the chest showed no evidence of any pulmonary embolism. There is cardiomegaly, interstitial edema and bilateral pleural effusion. EKG showed some ST segment depressions in inferior leads along with V4 through V6. The patient had mildly abnormal LFTs. Nevertheless, the ultrasound the abdomen was essentially negative. Her blood pressure is currently at 91/61. She is an 8L of oxygen by nasal cannula. The patient was started on Lasix 40 mg IV every 12 hours. The patient is also on IV heparin per protocol. Review of Systems CONSTITUTIONAL: No fever, no malaise, no fatigue. HEENT: No recent visual problems or hearing problems. Denied any sore throat. CARDIOVASCULAR: No orthopnea, PND, no palpitations, no syncope. PULMONARY: No chest wall tenderness, no hemoptysis. Exertional dyspnea as mentioned above GASTROINTESTINAL: No diarrhea, no nausea, no vomiting, no abdominal pain. Normoactive bowel sounds. NEUROLOGICAL: No headaches, no weakness, no numbness. HEMATOLOGICAL: Denies any bleeding or petechiae. GENITOURINARY: Denies any burning micturition, frequency, or urgency. MUSCULOSKELETAL/RHEUMATOLOGICAL: Denies any joint pain, swelling, or any muscle pain. ENDOCRINE: Denies any polyuria or polydipsia. Past Medical History Past Medical History: Cancer, Heart Failure, Hyperlipidemia, Hypertension, Osteoarthritis (OA) Additional Past Medical History / Comment(s): Multiple Myeloma, covid History of Any Multi-Drug Resistant Organisms: None Reported Past Surgical History: Bladder Surgery Past Psychological History: Anxiety Smoking Status: Never smoker Past Alcohol Use History: None Reported Past Drug Use History: None Reported Medications and Allergies Home Medications Medication Instructions Recorded Confirmed Type Albuterol Inhaler [Ventolin Hfa 1 - 2 puff INHALATION RT-Q6H PRN 01/09/23 01/09/23 History Inhaler] Ascorbic Acid [Vitamin C] 1,000 mg PO DAILY 01/09/23 01/09/23 History Ascorbic Acid [Vitamin C] 2,000 mg PO HS 01/09/23 01/09/23 History Atorvastatin [Lipitor] 40 mg PO HS 01/09/23 01/09/23 History Bisoprolol [Zebeta] 5 mg PO DAILY 01/09/23 01/09/23 History Bumetanide [Bumex] 1 mg PO DAILY 01/09/23 01/09/23 History Cholecalciferol [Vitamin D3 (125 250 mcg PO DAILY 01/09/23 01/09/23 History Mcg = 5000 Iu)] Empagliflozin [Jardiance] 10 mg PO DAILY 01/09/23 01/09/23 History Fexofenadine HCl [Tavia Allergy] 180 mg PO DAILY 01/09/23 01/09/23 History Hydrocortisone Oint 1 applic TOPICAL BID PRN 01/09/23 01/09/23 History [Hydrocortisone 2.5% Oint] Isosorbide Mononitrate ER [Imdur] 15 mg PO BID 01/09/23 01/09/23 History Losartan [Cozaar] 50 mg PO DAILY 01/09/23 01/09/23 History Montelukast [Singulair] 10 mg PO HS 01/09/23 01/09/23 History Multivitamins, Thera [Multivitamin 1 tab PO DAILY 01/09/23 01/09/23 History (formulary)] Super B Complex (With B1,B2,B6,B12) 1 tab PO DAILY 01/09/23 01/09/23 History Triamcinolone 0.1% Cream [Kenalog 1 applicatio TOPICAL BID PRN 01/09/23 01/09/23 History 0.1% Cream] cycloSPORINE 0.05% OPHTH SOLN 1 applicator BOTH EYES Q12H 01/09/23 01/09/23 History [Restasis] Allergies Allergy/AdvReac Type Severity Reaction Status Date / Time adhesive Allergy Rash/Hives Verified 01/09/23 13:49 Penicillins AdvReac Diarrhea Verified 01/09/23 13:49 Physical Exam Vitals: Vital Signs Temp Pulse Pulse Resp BP BP Pulse Ox 01/10/23 08:06 105 H 18 01/10/23 08:04 98.1 F 103 H 20 84/57 95 01/10/23 08:00 90 L 01/10/23 04:00 94 18 91/61 96 01/10/23 02:00 92 18 01/10/23 00:00 98 F 92 18 92/63 94 L 01/09/23 20:00 97.9 F 90 20 102/62 94 L 01/09/23 16:00 98.3 F 89 18 97/55 93 L 01/09/23 13:58 98.1 F 81 18 97/59 96 01/09/23 11:00 98.2 F 77 18 92/61 98 Intake and Output 01/09/23 01/10/23 01/10/23 22:59 06:59 14:59 Intake Total 74.678 118 Output Total 100 950 Balance -25.322 -950 118 Intake: Intake, IV Titration 74.678 Amount Heparin Sod,Pork in 0.45% 74.678 NaCl 25,000 unit In 0.45 % NaCl 1 250ml.bag @ 12 UNITS/KG/HR 7.348 mls/hr IV .Q24H [facility] Rx#: [id number] Oral 118 Output: Urine 100 950 Other: Voiding Method Indwelling Catheter Indwelling Catheter Indwelling Catheter Weight 62.1 kg GENERAL: The patient is alert and oriented x3, not in any acute distress. Well developed, well nourished. Patient is currently on 5 L of oxygen by nasal cannula and the patient sitting up on a recliner and she seems to be quite comfortable. HEENT: Pupils are round and equally reacting to light. EOMI. No scleral icterus. No conjunctival pallor. Normocephalic, atraumatic. No pharyngeal erythema. No thyromegaly. CARDIOVASCULAR: S1 and S2 present. No murmurs, rubs, or gallops. -PULMONARY: Chest is clear to auscultation, no wheezing bilateral basal crackles. Diminished breath on the lung bases related to pleural effusions bilaterally. ABDOMEN: Soft, nontender, nondistended, normoactive bowel sounds. No palpable organomegaly. MUSCULOSKELETAL: No joint swelling or deformity. -EXTREMITIES: No cyanosis, clubbing, bilateral pitting leg edema, 1+ NEUROLOGICAL: Gross neurological examination did not reveal any focal deficits. SKIN: No rashes. no petechiae. Results - Laboratory Findings CBC and BMP: 01/10/23 08:19 01/10/23 08:19 PT/INR, D-dimer PT 12.0 sec (9.0-12.0) 01/08/23 21:35 INR 1.2 (<1.2) H 01/08/23 21:35 D-Dimer 1.64 mg/L FEU (<0.60) H 01/08/23 21:35 Abnormal lab findings: Abnormal Labs 01/08/23 01/08/23 01/08/23 21:35 21:35 21:35 WBC 10.9 H Neutrophils # INR 1.2 H APTT 18.6 L D-Dimer 1.64 H VBG pH VBG pCO2 VBG HCO3 Sodium 135 L Potassium 5.6 H Chloride 97 L BUN 23 H Glucose 331 H POC Glucose (mg/dL) Plasma Lactic Acid Manod AST 138 H ALT 97 H Alkaline Phosphatase 212 H Troponin I Total Protein 01/08/23 01/08/23 01/08/23 21:35 21:35 23:03 WBC Neutrophils # INR APTT D-Dimer VBG pH VBG pCO2 VBG HCO3 Sodium Potassium Chloride BUN Glucose POC Glucose (mg/dL) Plasma Lactic Acid Mando 4.4 H* AST ALT Alkaline Phosphatase Troponin I 0.052 H* 0.058 H* Total Protein 01/08/23 01/09/23 01/09/23 23:03 00:34 03:16 WBC Neutrophils # INR APTT D-Dimer VBG pH 7.19 L* VBG pCO2 61 H VBG HCO3 23 L Sodium Potassium Chloride BUN Glucose POC Glucose (mg/dL) Plasma Lactic Acid Mando 3.1 H* AST ALT Alkaline Phosphatase Troponin I 0.448 H* Total Protein 01/09/23 01/10/23 01/10/23 20:01 08:19 08:19 WBC 15.6 H Neutrophils # 13.2 H INR APTT D-Dimer VBG pH VBG pCO2 VBG HCO3 Sodium 132 L Potassium Chloride 95 L BUN 25 H Glucose 168 H POC Glucose (mg/dL) 162 H Plasma Lactic Acid Mando AST 80 H ALT 119 H Alkaline Phosphatase 267 H Troponin I Total Protein 6.2 L - Diagnostic Findings Chest x-ray: image reviewed CT scan - chest: image reviewed Assessment and Plan Plan: Acute hypoxic respiratory failure currently the patient is on oxygen at 8 L/m nasal cannula secondary to CHF/pulmonary edema and bilateral pleural effusions Shortness of breath, hypoxic respiratory failure versus heart failure exacerbation History of congestive heart failure with preserved LV function, consider underlying diastolic heart failure, and the patient has been followed up with Dr. Thomas on outpatient basis Bilateral pleural effusion secondary to CHF Hypertension Hyperlipidemia Diabetes mellitus type II without any complications Plan Continue diuretics Repeat echocardiogram Management of IV heparin per cardiology Shortness of breath essentially due to CHF and bilateral pleural effusions and the patient be able to respond to diuretics and optimization of the CHF Resume all medications Wean down FiO2 as tolerated to maintain saturation above 90% We'll continue to follow
--- NOTE | 2023-01-10 11:45 | CA ---
Transthoracic Echo Report Name: Angi Rubio Age: 77 Gender: F : 1945 Exam Date: 01/10/2023 08:49 Exam Location: [facility] Ht (in): 65 Wt (lb): 136 Ordering Physician: Dayana Craven Attending/Referring Phys: Rubber Compounder Mixer Mary Jo Herbert RDCS Procedure CPT: Indications: chf Cardiac Hx: Technical Quality: Good Contrast 1: Total Dose (mL): Contrast 2: Total Dose (mL): MEASUREMENTS (Male / Female) Normal Values 2D ECHO LV Diastolic Diameter PLAX 5.1 cm 4.2 - 5.9 / 3.9 - 5.3 cm LV Systolic Diameter PLAX 3.6 cm IVS Diastolic Thickness 1.0 cm 0.6 - 1.0 / 0.6 - 0.9 cm LVPW Diastolic Thickness 0.9 cm 0.6 - 1.0 / 0.6 - 0.9 cm LV Relative Wall Thickness 0.4 RV Internal Dim ED PLAX 3.0 cm LA Systolic Diameter LX 3.7 cm 3.0 - 4.0 / 2.7 - 3.8 cm LA Volume 58.6 cm??? 18 - 58 / 22 - 52 cm??? M-MODE Aortic Root Diameter MM 3.2 cm AV Cusp Separation MM 2.3 cm DOPPLER AV Peak Velocity 89.6 cm/s AV Peak Gradient 3.2 mmHg MV Area PHT 5.1 cm??? MV Deceleration Time 209.9 ms TR Peak Velocity 326.0 cm/s TR Peak Gradient 42.5 mmHg Right Ventricular Systolic Press 56.8 mmHg FINDINGS Left Ventricle Left ventricular ejection fraction is estimated at 20-25 %. Left ventricular cavity size normal. Right Ventricle Normal right ventricular size. Mildly reduced right ventricular global systolic function. Severe pulmonary hypertension. Right ventricular systolic pressure estimated at 57 mm hg. Right Atrium Normal right atrial size. Left Atrium Mildly increased left atrial volume. Mitral Valve Structurally normal mitral valve. No evidence for mitral valve prolapse. No mitral stenosis. Severe mitral regurgitation. Aortic Valve Trileaflet aortic valve. No aortic valve stenosis or regurgitation. Tricuspid Valve Structurally normal tricuspid valve. Severe tricuspid regurgitation. Pulmonic Valve Mild pulmonic regurgitation. Pericardium Small pericardial effusion. Small pleural effusion. Aorta Normal size aortic root and proximal ascending aorta. CONCLUSIONS Severe LV systolic dysfunction Severe pulmonary hypertension Severe mitral regurgitation Severe tricuspid regurgitation Previewed by: Dr. Edgard Juarez MD (Electronically Signed) Final Date: 10 Jan 2023 11:44
[2023-01-10] MEDS: DAPAGLIFLOZIN PROPANEDIOL 10 MG TABLET PO SCH (12:27)
[2023-01-10] MEDS: BISOPROLOL 5 MG TAB PO SCH (12:27)
--- NOTE | 2023-01-10 12:50 | P.PN ---
Subjective Progress Note Date: 01/10/23 HISTORY OF PRESENT ILLNESS: This is 77-year-old female who is admitted to the hospital secondary to CHF exacerbation. Patient examined this morning. She is sitting in the chair. She continues to report shortness of breath although slowly improving. She may then nasal cannula to 18 oxygen saturations greater than 92%. She is maintained on IV Lasix 40 mg every 12 hours. Creatinine this morning is stable at 0.93. Records received from [facility] in [place]. The patient had an echocardiogram performed on 12/20/2022 revealing EF 55-60%, mild to moderate mitral regurgitation, mild tricuspid regurgitation. The patient states that she follows outpatient with Dr. Thomas and states that she had a cardiac catheterization performed in January 2022 which revealed normal coronary arteries with myocardial bridging. We are awaiting records of this. PHYSICAL EXAM: VITAL SIGNS: Reviewed. GENERAL: Well-developed in no acute distress. NECK: Supple. No JVD or thyromegaly LUNGS: Respirations even and unlabored. Lungs diminished bilaterally HEART: Regular rate and rhythm. S1 and S2 heard. EXTREMITIES: Normal range of motion. No clubbing or cyanosis. Peripheral pulses intact. Trace bilateral lower extremity edema ASSESSMENT: Shortness of breath Acute on chronic heart failure with preserved EF Bilateral pleural effusions Hypertension Hyperlipidemia Diabetes History of normal coronary arteries with myocardial bridging, per patient PLAN: Awaiting records of patient's cardiac catheterization from last year Patient with abnormal EKG on admission. Obtain EKG from patient's primary cardi ologist for comparison. Continue current cardiac medications Continue IV Lasix 40 mg every 12 hours Daily weights, accurate I&O, and monitor kidney function Further recommendations pending patient's course Nurse practitioner note has been reviewed by physician. Signing provider agrees with the documented findings, assessment, and plan of care. Objective - Vital Signs Vital signs: Vital Signs Temp 98.0 F 01/10/23 11:40 Pulse 102 H 01/10/23 11:40 Resp 18 01/10/23 11:40 BP 82/57 01/10/23 11:40 Pulse Ox 94 L 01/10/23 11:40 FiO2 Intake & Output 01/09/23 01/10/23 01/10/23 18:59 06:59 18:59 Intake Total 123.297 118 Output Total 1600 1050 Balance -1476.703 -1050 118 Weight 62.1 kg Intake: Intake, IV Titration 123.297 Amount Heparin Sod,Pork in 0.45% 123.297 NaCl 25,000 unit In 0.45 % NaCl 1 250ml.bag @ 12 UNITS/KG/HR 7.348 mls/hr IV .Q24H [facility] Rx#: [id number] Oral 118 Output: Urine 1600 1050 Other: Voiding Method Indwelling Catheter Indwelling Catheter Indwelling Catheter - Labs CBC & Chem 7: 01/10/23 08:19 01/10/23 08:19 Labs: Abnormal Lab Results - Last 24 Hours (Table) 01/09/23 01/10/23 01/10/23 Range/Units 20:01 08:19 08:19 WBC 15.6 H (3.8-10.6) k/uL Neutrophils # 13.2 H (1.3-7.7) k/uL Sodium 132 L (137-145) mmol/L Chloride 95 L (98-107) mmol/L BUN 25 H (7-17) mg/dL Glucose 168 H (74-99) mg/dL POC Glucose (mg/dL) 162 H (70-110) mg/dL AST 80 H (14-36) U/L ALT 119 H (4-34) U/L Alkaline Phosphatase 267 H (38-126) U/L Total Protein 6.2 L (6.3-8.2) g/dL
[2023-01-10 16:59] LABS: Basophils % (A) 0 %; Eosinophils # (A) 0.1 k/uL (0-0.7); Eosinophils % (A) 0 %; HCT 39.7 % (34.0-46.0); HGB 12.8 gm/dL (11.4-16.0); Lymphocytes # (A) 1.4 k/uL (1.0-4.8); Lymphocytes % (A) 9 %; MCH 31.3 pg (25.0-35.0); MCHC 32.3 g/dL (31.0-37.0); Mean Platelet Volume 9.4; Monocytes # (A) 1.2 k/uL (0-1.0); Monocytes % (A) 8 %; Neutrophils # (A) 13.2 k/uL (1.3-7.7); Neutrophils % (A) 82 %; Platelet Count 249 k/uL (150-450); RBC 4.09 m/uL (3.80-5.40); WBC 16.1 k/uL (3.8-10.6)
[2023-01-10] MEDS: ASPIRIN 81 MG PO SCH (17:14)
[2023-01-10] MEDS ORDERED: ALBUTEROL NEBULIZED 2.5 MG/3 ML INHALATION PRN (17:46)
[2023-01-10] MEDS: ALBUTEROL HFA INHALER INHALATION PRN (17:53)
[2023-01-10] MEDS: MONTELUKAST 10 MG TAB PO SCH (19:33)
[2023-01-10] MEDS: ATORVASTATIN 40 MG TAB PO SCH (19:33)
[2023-01-11] MEDS: ASPIRIN 81 MG PO SCH (08:24)
[2023-01-11] MEDS: ASCORBIC ACID 500 MG TAB PO SCH ×2 (08:24→20:03)
[2023-01-11] MEDS: LORATADINE 10 MG TAB PO SCH (08:24)
[2023-01-11] MEDS: CHOLECALCIFEROL 125 MCG (5000 IU) TABLET PO SCH (08:24)
[2023-01-11] MEDS: MULTIVITAMINS, THERA 1 EACH TAB PO SCH (08:24)
[2023-01-11] MEDS: DAPAGLIFLOZIN PROPANEDIOL 10 MG TABLET PO SCH (08:25)
[2023-01-11] MEDS: FUROSEMIDE 10 MG/ML 4 ML VIAL IV SCH ×3 (08:25→15:39)
[2023-01-11] MEDS: BISOPROLOL 5 MG TAB PO SCH (08:25)
[2023-01-11] MEDS: FAMOTIDINE 20 MG TAB PO SCH (08:25)
[2023-01-11] MEDS: cycloSPORINE 0.05% OPHTH 0.4 ML DROPERETTE BOTH EYES SCH ×2 (08:25→22:16)
[2023-01-11] MEDS ORDERED: ATORVASTATIN 40 MG TAB PO SCH (09:00)
[2023-01-11 09:44] LABS: Calcium 9.7 mg/dL (8.4-10.2); Potassium 4.7 mmol/L (3.5-5.1)
--- NOTE | 2023-01-11 11:05 | P.PN ---
Subjective HISTORY OF PRESENT ILLNESS: This is 77-year-old female who is admitted to the hospital secondary to CHF exacerbation. Patient examined this morning. She is sitting in the chair. She continues to report shortness of breath although slowly improving. She may then nasal cannula to 18 oxygen saturations greater than 92%. She is maintained on IV Lasix 40 mg every 12 hours. Creatinine this morning is stable at 0.93. Michael rds received from [facility] in [place]. The patient had an echocardiogram performed on 12/20/2022 revealing EF 55-60%, mild to moderate mitral regurgitation, mild tricuspid regurgitation. The patient states that she follows outpatient with Dr. Thomas and states that she had a cardiac catheterization performed in January 2022 which revealed normal coronary arteries with myocardial bridging. We are awaiting records of this. 01/11/2023 Patient examined this morning. She is sitting up in the chair. She continues to report shortness of breath although it is improved from yesterday. She states she is still unable to lay flat without having significant dyspnea. She remains on IV Lasix 40 mg every 12 hours. Echocardiogram obtained reveals ejection fraction 2025%, severe pulmonary hypertension, severe mitral regurgitation, severe tricuspid regurgitation, small pericardial effusion and small pleural effusion. Records obtained from patient's primary sales and marketing intern reviewed. Patient underwent cardiac catheterization on 02/10/2022 revealing 30% mid LAD stenosis and otherwise normal coronary arteries. PHYSICAL EXAM: VITAL SIGNS: Reviewed. GENERAL: Well-developed in no acute distress. NECK: Supple. + JVD. No thyromegaly LUNGS: Respirations even and unlabored. Lungs diminished bilaterally HEART: Regular rate and rhythm. S1 and S2 heard. Systolic murmur noted EXTREMITIES: Normal range of motion. No clubbing or cyanosis. Peripheral pulses intact. Trace bilateral lower extremity edema ASSESSMENT: Shortness of breath Acute on chronic heart failure with reduced EF, 20-25% New cardiomyopathy, 20-25%, was 55-60% on 12/20/2022, etiology unclear, rule out underlying CAD Severe mitral regurgitation Bilateral pleural effusions Hypertension Hyperlipidemia Diabetes Coronary artery disease with 30% LAD stenosis, per cardiac catheterization in January 2022 PLAN: Patient with abnormal EKG on admission. Awaiting EKG from patient's primary sales and marketing intern for comparison. Continue current cardiac medications Continue IV Lasix. Increase dosage to every 8 hours Daily weights, accurate I&O, and monitor kidney function Nothing by mouth at midnight Recommend CATALINA and repeat cardiac catheterization when patient is able to comfortably lay flat Further recommendations pending patient's course Nurse practitioner note has been reviewed by physician. Signing provider agrees with the documented findings, assessment, and plan of care. Objective - Vital Signs Vital signs: Vital Signs Temp 97.8 F 01/11/23 08:20 Pulse 82 01/11/23 08:20 Resp 18 01/11/23 08:20 BP 90/60 01/11/23 08:20 Pulse Ox 95 01/11/23 08:20 FiO2 Intake & Output 01/10/23 01/11/23 01/11/23 18:59 06:59 18:59 Intake Total 476 120 Output Total 200 250 Balance 276 -130 Weight 62.1 kg 63 kg Intake: Oral 476 120 Output: Urine 200 250 Other: Voiding Method Indwelling Catheter Indwelling Catheter Indwelling Catheter # Bowel Movements 1 - Labs CBC & Chem 7: 01/10/23 16:21 01/11/23 08:51 Labs: Abnormal Lab Results - Last 24 Hours (Table) 01/10/23 01/10/23 01/11/23 Range/Units 08:19 16:21 08:51 WBC 16.1 H (3.8-10.6) k/uL Neutrophils # 13.2 H (1.3-7.7) k/uL Monocytes # 1.2 H (0-1.0) k/uL Sodium 129 L (137-145) mmol/L Chloride 91 L (98-107) mmol/L BUN 33 H (7-17) mg/dL Glucose 114 H (74-99) mg/dL Procalcitonin 1.85 H (0.02-0.09) ng/mL
--- NOTE | 2023-01-11 11:19 | P.PN ---
Subjective Progress Note Date: 01/11/23 This is a 77-year-old female patient was hospitalized for worsening shortness of breath. She is known to have CHF with diastolic heart failure and she has been followed up by Dr. Thomas on outpatient basis. Apparently, she does not have any underlying coronary artery disease. The patient came into the hospital because of worsening shortness of breath. No cough. No pleurisy. No hemoptysis. No chest pain. Limited edema lower extremities bilaterally. The WBC count is at 10.9 with a hemoglobin of 12.7, d-dimer is at 1.64, BUN is at 23 with a creatinine of 0.8 and the proBNP level is 4590 and the troponins were 0.05 and 0.05 and 0.44 respectively 3. CTA of the chest showed no evidence of any pulmonary embolism. There is cardiomegaly, interstitial edema and bilateral pleural effusion. EKG showed some ST segment depressions in inferior leads along with V4 through V6. The patient had mildly abnormal LFTs. Nevertheless, the ultrasound the abdomen was essentially negative. Her blood pressure is currently at 91/61. She is an 8L of oxygen by nasal cannula. The patient was started on Lasix 40 mg IV every 12 hours. The patient is also on IV heparin per protocol. On today's evaluation of 01/11/2023, the patient is feeling less short of breath. She is responding nicely to diuresis and the patient is currently on Lasix receiving a dose of 40 mg every 8 hours. Nevertheless, she remains on oxygen at 8 L/m nasal cannula. Echocardiogram was completed yesterday and the patient was found to have severe cardiomyopathy and the patient is a physical e jection fraction was in order of 20-25%. The patient was also found to have severe pulmonary hypertension and right ventricular systolic pressure was estimated to be 57. There was also evidence of severe mitral regurgitation. Patient also severe tricuspid regurgitation. The blood work from today shows a sodium level of 129, BUN is 33 with a creatinine of 0.8 and a potassium level is at 4.7. Rest of the CBC is pending. ProBNP level was 24,700. Objective - Vital Signs Vital signs: Vital Signs Temp 98.3 F 01/11/23 04:00 Pulse 90 01/11/23 04:00 Resp 20 01/11/23 04:00 BP 92/60 01/11/23 04:00 Pulse Ox 92 L 01/11/23 04:00 FiO2 Intake & Output 01/10/23 01/11/23 01/11/23 18:59 06:59 18:59 Intake Total 476 120 Output Total 200 250 Balance 276 -130 Weight 62.1 kg 63 kg Intake: Oral 476 120 Output: Urine 200 250 Other: Voiding Method Indwelling Catheter Indwelling Catheter # Bowel Movements 1 - Exam GENERAL: The patient is alert and oriented x3, not in any acute distress. Well developed, well nourished. Patient is currently on 5 L of oxygen by nasal cannula and the patient sitting up on a recliner and she seems to be quite comfortable. HEENT: Pupils are round and equally reacting to light. EOMI. No scleral icterus. No conjunctival pallor. Normocephalic, atraumatic. No pharyngeal erythema. No thyromegaly. CARDIOVASCULAR: S1 and S2 present. No murmurs, rubs, or gallops. -PULMONARY: Chest is clear to auscultation, no wheezing bilateral basal crackles. Diminished breath on the lung bases related to pleural effusions bilaterally. ABDOMEN: Soft, nontender, nondistended, normoactive bowel sounds. No palpable organomegaly. MUSCULOSKELETAL: No joint swelling or deformity. -EXTREMITIES: No cyanosis, clubbing, bilateral pitting leg edema, 1+ NEUROLOGICAL: Gross neurological examination did not reveal any focal deficits. SKIN: No rashes. no petechiae. - Labs CBC & Chem 7: 01/10/23 16:21 01/11/23 08:51 Labs: Abnormal Lab Results - Last 24 Hours (Table) 01/10/23 01/10/23 Range/Units 08:19 16:21 WBC 16.1 H (3.8-10.6) k/uL Neutrophils # 13.2 H (1.3-7.7) k/uL Monocytes # 1.2 H (0-1.0) k/uL Procalcitonin 1.85 H (0.02-0.09) ng/mL Assessment and Plan Plan: Acute hypoxic respiratory failure currently the patient is on oxygen at 8 L/m nasal cannula secondary to CHF/pulmonary edema and bilateral pleural effusions Shortness of breath, hypoxic respiratory failure versus heart failure exacerbation Acute decompensated systolic heart failure with an ejection fraction of 20-25% Severe pulmonary hypertension secondary to above Severe mitral and tricuspid regurgitation History of congestive heart failure has been followed up with Dr. Thomas on outpatient basis Bilateral pleural effusion secondary to CHF Hypertension Hyperlipidemia Diabetes mellitus type II without any complications Plan Continue diuretics Considered that a CATALINA evaluation for the valvular leak including the mitral intravascular regurgitation Shortness of breath is essentially improving Continue diuresis Resume all medications Wean down FiO2 as tolerated to maintain saturation above 90% We'll continue to follow
[2023-01-11] MEDS: ALPRAZolam 0.25 MG TAB PO PRN ×2 (16:49→22:16)
[2023-01-11] MEDS: ALBUTEROL HFA INHALER INHALATION PRN (18:17)
[2023-01-11 18:37] LABS: Basophils % (A) 0 %; Eosinophils # (A) 0.1 k/uL (0-0.7); Eosinophils % (A) 1 %; HCT 41.1 % (34.0-46.0); HGB 13.1 gm/dL (11.4-16.0); Hypochromasia Slight; Lymphocytes # (A) 1.2 k/uL (1.0-4.8); Lymphocytes % (A) 9 %; MCH 31.2 pg (25.0-35.0); MCHC 31.8 g/dL (31.0-37.0); MCV 98.1 fL (80.0-100.0); Mean Platelet Volume 11.8; Monocytes # (A) 1.1 k/uL (0-1.0); Monocytes % (A) 8 %; Neutrophils # (A) 11.5 k/uL (1.3-7.7); Neutrophils % (A) 82 %; Platelet Count 262 k/uL (150-450); RBC 4.19 m/uL (3.80-5.40); WBC 14.1 k/uL (3.8-10.6)
--- NOTE | 2023-01-11 18:41 | XR ---
EXAMINATION TYPE: XR chest 1V portable DATE OF EXAM: 01/11/2023 6:20 PM COMPARISON: Chest radiographs from 01/08/2023, CTA chest 01/08/2023. TECHNIQUE: XR chest 1V portable Portable AP radiograph of the chest. CLINICAL INDICATION:Female, 77 years old with history of SOB; MANNY; FINDINGS: Lungs/Pleura: Small bilateral pleural effusions with associated atelectasis. No pneumothorax. Pulmonary vascularity: Mild pulmonary vascular congestion. Heart/mediastinum: Cardiomediastinal silhouette is enlarged and stable. Musculoskeletal: No acute osseous pathology. Degenerative changes of the spine. Bilateral shoulder ar thropathy. IMPRESSION: Cardiomegaly, pulmonary vascular congestion and bilateral pleural effusions. Correlate with BNP for c ongestive heart failure.
[2023-01-11 18:50] LABS: Glucose,Whole Blood 238 mg/dL (70-110)
[2023-01-11 19:13] LABS: Glucose,Whole Blood 179 mg/dL (70-110)
[2023-01-11] MEDS ORDERED: DOBUTamine DRIP 250 ML IV SCH (19:15)
[2023-01-11] MEDS ORDERED: MORPHINE SULFATE 2 MG/ML SYRINGE IVP STA (19:20)
[2023-01-11] MEDS ORDERED: DOBUTamine DRIP 500 MG in DEXTROSE/WATER 1 250ML.BAG IV SCH ×2 (19:30→23:15)
[2023-01-11 19:56] LABS: Basophils % (A) 0 %; Eosinophils % (A) 0 %; HCT 41.7 % (34.0-46.0); HGB 13.2 gm/dL (11.4-16.0); Lymphocytes # (A) 1.1 k/uL (1.0-4.8); Lymphocytes % (A) 7 %; MCH 30.7 pg (25.0-35.0); MCHC 31.7 g/dL (31.0-37.0); MCV 96.8 fL (80.0-100.0); Monocytes # (A) 0.8 k/uL (0-1.0); Monocytes % (A) 5 %; Neutrophils # (A) 13.5 k/uL (1.3-7.7); Neutrophils % (A) 87 %; Platelet Count 275 k/uL (150-450); RBC 4.31 m/uL (3.80-5.40); RDW 14.4 % (11.5-15.5); WBC 15.5 k/uL (3.8-10.6)
[2023-01-11] MEDS: FUROSEMIDE 100 MG in SODIUM CHLORIDE 0.9% 90 ML IV SCH (20:03)
[2023-01-11] MEDS: MONTELUKAST 10 MG TAB PO SCH (20:03)
[2023-01-11] MEDS: ATORVASTATIN 40 MG TAB PO SCH (20:05)
[2023-01-11] MEDS: NOREPINEPHRINE 4 MG in SODIUM CHLORIDE 0.9% 250 ML IV SCH (20:05)
[2023-01-11 20:13] LABS: Calcium 9.6 mg/dL (8.4-10.2); Magnesium 2.2 mg/dL (1.6-2.3); Potassium 4.6 mmol/L (3.5-5.1)
--- NOTE | 2023-01-12 02:24 | PN ---
PROGRESS NOTE DATE OF SERVICE: 01/10/2023 CHIEF COMPLAINT: Difficulty breathing. HISTORY OF PRESENT ILLNESS: This lady is still struggling to breath. Laboratory studies and findings are concerning. White count is 15,900. Liver function studies are up as well. She has stage 3A CKD. She also has troponins. Her echocardiogram revealed an ejection fraction of only 20% to 25%. Apparently, it was normal about a year ago. She is not having any pain. PHYSICAL EXAMINATION: VITAL SIGNS: Pulse ox is in the high 80s. Blood pressure systolically in the 80s. CHEST: Demonstrates that she is struggling, and she is tachypneic with decreased breath sounds at the bases. CARDIAC: Exam demonstrates sinus tachycardia. Murmurs cannot definitely be heard. ABDOMEN: Slightly protuberant. EXTREMITIES: Minimally edematous. IMPRESSION: 1. Acute congestive heart failure with reduced ejection fraction. 2. Mitral insufficiency. 3. Tricuspid insufficiency. 4. Leukocytosis. 5. Elevated liver function studies. 6. Stage 3A chronic kidney disease. 7. Multiple sclerosis. PLAN: Continue to follow with Cardiology and Pulmonology. Her condition is surprising and concerning. MMODL / IJN: [id number] /
[2023-01-12] MEDS: ALPRAZolam 0.25 MG TAB PO PRN (04:18)
[2023-01-12 06:01] LABS: Basophils % (A) 0 %; Eosinophils % (A) 0 %; HCT 38.2 % (34.0-46.0); HGB 12.7 gm/dL (11.4-16.0); Lymphocytes # (A) 1.9 k/uL (1.0-4.8); Lymphocytes % (A) 12 %; MCH 31.1 pg (25.0-35.0); MCHC 33.1 g/dL (31.0-37.0); MCV 93.9 fL (80.0-100.0); Mean Platelet Volume 9.3; Monocytes # (A) 0.8 k/uL (0-1.0); Monocytes % (A) 5 %; Neutrophils # (A) 12.7 k/uL (1.3-7.7); Neutrophils % (A) 81 %; Platelet Count 250 k/uL (150-450); RBC 4.07 m/uL (3.80-5.40); RDW 14.5 % (11.5-15.5); WBC 15.6 k/uL (3.8-10.6)
[2023-01-12 06:15] LABS: Albumin 3.4 g/dL (3.5-5.0); Calcium 9.3 mg/dL (8.4-10.2); Potassium 4.7 mmol/L (3.5-5.1); Total Bilirubin 0.7 mg/dL (0.2-1.3); Total Protein 5.9 g/dL (6.3-8.2)
--- NOTE | 2023-01-12 07:37 | PN ---
PROGRESS NOTE DATE OF SERVICE: 01/10/2023 CHIEF COMPLAINT: Shortness of breath. HISTORY OF PRESENT ILLNESS: This lady is struggling. She is still quite short of breath. She is being followed by Cardiology and Pulmonology. Her white count is slightly elevated at 15,900. Liver function studies are also up. Troponins are up as well. This could be related to her CHF and renal failure. She is stage 3a CKD. REVIEW OF SYSTEMS: She is not complaining of any chest pain. She is very dyspneic. PHYSICAL EXAMINATION: VITAL SIGNS: She is tachypneic on exam. Blood pressure is low systolically around 90. CHEST: Demonstrates poor breath sounds at the base MMODL / IJN: [id number] /
[2023-01-12] MEDS: NOREPINEPHRINE 4 MG in SODIUM CHLORIDE 0.9% 250 ML IV SCH (07:40)
--- NOTE | 2023-01-12 07:57 | P.GSCN ---
History of Present Illness Consult date: 01/12/23 History of present illness: 77-year-old female we were asked to see for gross hematuria. She is in the hospital with shortness of breath probably secondary to congestive heart failure recently diagnosed. She had an indwelling catheter placed and has had some subsequent hematuria. There is no urinalysis on the chart prior to the catheterization. She was placed on angulation during this ICU stay. The patient's interviewed as well as her daughter. There is no urinary tract history. No history of hematuria infections stones or previous urologic consultation. The urine in the catheter is light tea-colored at this point in time. Review of Systems All systems: negative - Constitutional Denies fever, Denies weight loss - EENT Eyes: denies blurred vision Ears, nose, mouth and throat: Denies dysphagia - Cardiovascular Denies chest pain, Denies shortness of breath - Respiratory Denies cough, Denies 7 - Gastrointestinal Reports as per HPI - Genitourinary Genitourinary: Denies dysuria, Denies hematuria - Integumentary Denies rash, Denies unusual bruising - Neurological Denies headaches, Denies syncope - Hematologic/Lymphatic Denies easy bleeding, Denies easy bruising Past Medical History Past Medical History: Cancer, Heart Failure, Hyperlipidemia, Hypertension, Osteoarthritis (OA) Additional Past Medical History / Comment(s): Multiple Myeloma, covid History of Any Multi-Drug Resistant Organisms: None Reported Past Surgical History: Bladder Surgery Past Psychological History: Anxiety Smoking Status: Never smoker Past Alcohol Use History: None Reported Past Drug Use History: None Reported Medications and Allergies Home Medications Medication Instructions Recorded Confirmed Type Albuterol Inhaler [Ventolin Hfa 1 - 2 puff INHALATION RT-Q6H PRN 01/09/2301/09 History Inhaler] Ascorbic Acid [Vitamin C] 1,000 mg PO DAILY 01/09/23 01/09/23 History Ascorbic Acid [Vitamin C] 2,000 mg PO HS 01/09/23 01/09/23 History Atorvastatin [Lipitor] 40 mg PO HS 01/09/23 01/09/23 History Bisoprolol [Zebeta] 5 mg PO DAILY 01/09/23 01/09/23 History Bumetanide [Bumex] 1 mg PO DAILY 01/09/23 01/09/23 History Cholecalciferol [Vitamin D3 (125 250 mcg PO DAILY 01/09/23 01/09/23 History Mcg = 5000 Iu)] Empagliflozin [Jardiance] 10 mg PO DAILY 01/09/23 01/09/23 History Fexofenadine HCl [Tavia Allergy] 180 mg PO DAILY 01/09/23 01/09/23 History Hydrocortisone Oint 1 applic TOPICAL BID PRN 01/09/23 01/09/23 History [Hydrocortisone 2.5% Oint] Isosorbide Mononitrate ER [Imdur] 15 mg PO BID 01/09/23 01/09/23 History Losartan [Cozaar] 50 mg PO DAILY 01/09/23 01/09/23 History Montelukast [Singulair] 10 mg PO HS 01/09/23 01/09/23 History Multivitamins, Thera [Multivitamin 1 tab PO DAILY 01/09/23 01/09/23 History (formulary)] Super B Complex (With B1,B2,B6,B12) 1 tab PO DAILY 01/09/23 01/09/23 History Triamcinolone 0.1% Cream [Kenalog 1 applicatio TOPICAL BID PRN 01/09/23 01/09/23 History 0.1% Cream] cycloSPORINE 0.05% OPHTH SOLN 1 applicator BOTH EYES Q12H 01/09/23 01/09/23 History [Restasis] Allergies Allergy/AdvReac Type Severity Reaction Status Date / Time adhesive Allergy Rash/Hives Verified 01/09/23 13:49 Penicillins AdvReac Diarrhea Verified 01/09/23 13:49 Surgical - Exam Vital Signs Temp Pulse Resp BP Pulse Ox 97.3 F L 106 H 32 H 103/81 95 01/08/23 21:15 01/08/23 21:15 01/08/23 21:15 01/08/23 21:15 01/08/23 21:15 - General well developed, moderate distress - Eyes normal ocular movement, no icteric - ENT no hearing loss, no congestion - Neck no masses, trachea midline - Respiratory Oxygen with some shortness of breath - Abdomen Abdomen: soft, non tender, no guarding, no rigid, no rebound - Genitourinary Indwelling catheter with light tea-colored urine - Integumentary no rash, no abnormal pigmentation - Neurologic no disoriented, no combative - Musculoskeletal normal posture - Psychiatric oriented to time, oriented to person, oriented to place, speech is normal, memory intact Results - Labs 01/12/23 05:45 01/12/23 05:45 Abnormal Lab Results - Last 24 Hours (Table) 01/11/23 01/11/23 01/11/23 Range/Units 08:51 08:51 18:48 WBC 14.1 H (3.8-10.6) k/uL Neutrophils # 11.5 H (1.3-7.7) k/uL Monocytes # 1.1 H (0-1.0) k/uL Sodium 129 L (137-145) mmol/L Chloride 91 L (98-107) mmol/L Carbon Dioxide (22-30) mmol/L BUN 33 H (7-17) mg/dL Creatinine (0.52-1.04) mg/dL Glucose 114 H (74-99) mg/dL POC Glucose (mg/dL) 238 H (70-110) mg/dL AST (14-36) U/L ALT (4-34) U/L Alkaline Phosphatase (38-126) U/L Total Protein (6.3-8.2) g/dL Albumin (3.5-5.0) g/dL 01/11/23 01/11/23 01/11/23 Range/Units 19:12 19:45 19:45 WBC 15.5 H (3.8-10.6) k/uL Neutrophils # 13.5 H (1.3-7.7) k/uL Monocytes # (0-1.0) k/uL Sodium 126 L (137-145) mmol/L Chloride 88 L (98-107) mmol/L Carbon Dioxide 21 L (22-30) mmol/L BUN 37 H (7-17) mg/dL Creatinine 1.11 H (0.52-1.04) mg/dL Glucose 210 H (74-99) mg/dL POC Glucose (mg/dL) 179 H (70-110) mg/dL AST (14-36) U/L ALT (4-34) U/L Alkaline Phosphatase (38-126) U/L Total Protein (6.3-8.2) g/dL Albumin (3.5-5.0) g/dL 01/12/23 01/12/23 Range/Units 05:45 05:45 WBC 15.6 H (3.8-10.6) k/uL Neutrophils # 12.7 H (1.3-7.7) k/uL Monocytes # (0-1.0) k/uL Sodium 126 L (137-145) mmol/L Chloride 92 L (98-107) mmol/L Carbon Dioxide (22-30) mmol/L BUN 40 H (7-17) mg/dL Creatinine (0.52-1.04) mg/dL Glucose 128 H (74-99) mg/dL POC Glucose (mg/dL) (70-110) mg/dL AST 1148 H (14-36) U/L ALT 1172 H (4-34) U/L Alkaline Phosphatase 259 H (38-126) U/L Total Protein 5.9 L (6.3-8.2) g/dL Albumin 3.4 L (3.5-5.0) g/dL Microbiology - Last 24 Hours (Table) 01/08/23 21:30 Blood Culture - Preliminary Blood 01/08/23 21:15 Blood Culture - Preliminary Blood Diabetes panel 01/11/23 01/11/23 01/12/23 Range/Units 08:51 19:45 05:45 Sodium 129 L 126 L 126 L (137-145) mmol/L Potassium 4.7 4.6 4.7 (3.5-5.1) mmol/L Chloride 91 L 88 L 92 L (98-107) mmol/L Carbon Dioxide 27 21 L 22 (22-30) mmol/L BUN 33 H 37 H 40 H (7-17) mg/dL Creatinine 0.89 1.11 H 1.02 (0.52-1.04) mg/dL Glucose 114 H 210 H 128 H (74-99) mg/dL Calcium 9.7 9.6 9.3 (8.4-10.2) mg/dL AST 1148 H (14-36) U/L ALT 1172 H (4-34) U/L Alkaline Phosphatase 259 H (38-126) U/L Total Protein 5.9 L (6.3-8.2) g/dL Albumin 3.4 L (3.5-5.0) g/dL Calcium panel 01/11/23 01/11/23 01/12/23 Range/Units 08:51 19:45 05:45 Calcium 9.7 9.6 9.3 (8.4-10.2) mg/dL Albumin 3.4 L (3.5-5.0) g/dL Pituitary panel 01/11/23 01/11/23 01/12/23 Range/Units 08:51 19:45 05:45 Sodium 129 L 126 L 126 L (137-145) mmol/L Potassium 4.7 4.6 4.7 (3.5-5.1) mmol/L Chloride 91 L 88 L 92 L (98-107) mmol/L Carbon Dioxide 27 21 L 22 (22-30) mmol/L BUN 33 H 37 H 40 H (7-17) mg/dL Creatinine 0.89 1.11 H 1.02 (0.52-1.04) mg/dL Glucose 114 H 210 H 128 H (74-99) mg/dL Calcium 9.7 9.6 9.3 (8.4-10.2) mg/dL Adrenal panel 01/11/23 01/11/23 01/12/23 Range/Units 08:51 19:45 05:45 Sodium 129 L 126 L 126 L (137-145) mmol/L Potassium 4.7 4.6 4.7 (3.5-5.1) mmol/L Chloride 91 L 88 L 92 L (98-107) mmol/L Carbon Dioxide 27 21 L 22 (22-30) mmol/L BUN 33 H 37 H 40 H (7-17) mg/dL Creatinine 0.89 1.11 H 1.02 (0.52-1.04) mg/dL Glucose 114 H 210 H 128 H (74-99) mg/dL Calcium 9.7 9.6 9.3 (8.4-10.2) mg/dL Total Bilirubin 0.7 (0.2-1.3) mg/dL AST 1148 H (14-36) U/L ALT 1172 H (4-34) U/L Alkaline Phosphatase 259 H (38-126) U/L Total Protein 5.9 L (6.3-8.2) g/dL Albumin 3.4 L (3.5-5.0) g/dL Assessment and Plan Assessment: Impression: Shortness of breath secondary to congestive heart failure. Multiple medical illnesses. Hematuria secondary to cath trauma aggravated by antic oagulation Recommendations: From a urologic standpoint nothing further needs to be done at this point in time. A follow-up urinalysis to make sure the urine clears would be appropriate as an outpatient.
--- NOTE | 2023-01-12 08:25 | P.PN ---
Subjective Progress Note Date: 01/12/23 PROGRESS NOTE The patient is a 77-year-old female who presented with symptoms of progressive dyspnea and evidence of CHF. She has underwent cardiac catheterization in January 2022 and was found to have mild obstructive disease and had an echocardiogram done during an admission to an outside hospital about 2 weeks ago that was reported showing a preserved systolic function. She was transferred to the ICU yesterday because of progressive dyspnea and was placed on a BiPAP, IV Lasix drip in addition to IV dobutamine. She's sitting up, feeling better, continues to be on BiPAP. Her urinary output has been. She denies any chest discomfort. She continues to be in sinus mechanism. A repeat echocardiogram done here showed a severely impaired systolic function with severe mitral and tricuspid regurgitation and severe pulmonary hypertension. Her blood pressure has been on the lower side. Medications: IV Lasix drip, dobutamine infusion, aspirin, Lipitor 40 mg daily, bisoprolol 5 mg daily, Farxiga 10 mg daily, Singulair 10 mg daily. Norepinephrine PHYSICAL EXAMINATION: Blood pressure 95/60 heart rate 80 LUNGS: Decreased breath sounds at the bases HEART: Regular rate and rhythm, S1, S2. No S3. Holosystolic murmur 09/19 ABDOMEN: Soft, nontender, no organomegaly EXTREMETIES: No edema LAB: WBC 15.6, BUN 40, creatinine 1.02. AST 1148, ALT 1172 IMPRESSION: 1. Acute CHF with severely impaired systolic function. There is significant worsening of her systolic function compared to 2 weeks ago, etiology is unclear. Patient had mild CAD one year ago. The possibility of myocarditis cannot be to tally excluded 2. Severe mitral and tricuspid regurgitation, recent 3. Elevated transaminase, probably liver congestion 4. Prior history of hypertension PLAN: 1. Continue present therapy 2. Patient with require further evaluation including CATALINA and cardiac catheterization when she is able to lay supine 3. Follow her renal function and liver function 4. I discussed the findings in detail with the patient and her daughter 5. Depending on her progress further recommendations will be made Objective - Vital Signs Vital signs: Vital Signs Temp 96.8 F L 01/12/23 04:00 Pulse 80 01/12/23 07:30 Resp 26 H 01/12/23 07:30 BP 95/66 01/12/23 07:30 Pulse Ox 98 01/12/23 07:30 FiO2 75 01/12/23 03:42 Intake & Output 01/11/23 01/12/23 01/12/23 18:59 06:59 18:59 Intake Total 659.000 9.681 Output Total 600 615 Balance -600 44.000 9.681 Weight 68.7 kg Intake: IV 55 0.9 55 Intake, IV Titration 254.000 9.681 Amount Norepinephrine 4 mg In 254.000 9.681 Sodium Chloride 0.9% 250 ml @ 0.03 MCG/KG/MIN 7. 201 mls/hr IV .Q24H [facility] Rx#:[id number] Oral 350 Output: Urine 600 615 Other: Voiding Method Indwelling Catheter Indwelling Catheter - Labs CBC & Chem 7: 01/12/23 05:45 01/12/23 05:45 Labs: Abnormal Lab Results - Last 24 Hours (Table) 01/11/23 01/11/23 01/11/23 Range/Units 08:51 08:51 18:48 WBC 14.1 H (3.8-10.6) k/uL Neutrophils # 11.5 H (1.3-7.7) k/uL Monocytes # 1.1 H (0-1.0) k/uL Sodium 129 L (137-145) mmol/L Chloride 91 L (98-107) mmol/L Carbon Dioxide (22-30) mmol/L BUN 33 H (7-17) mg/dL Creatinine (0.52-1.04) mg/dL Glucose 114 H (74-99) mg/dL POC Glucose (mg/dL) 238 H (70-110) mg/dL AST (14-36) U/L ALT (4-34) U/L Alkaline Phosphatase (38-126) U/L Total Protein (6.3-8.2) g/dL Albumin (3.5-5.0) g/dL 01/11/23 01/11/23 01/11/23 Range/Units 19:12 19:45 19:45 WBC 15.5 H (3.8-10.6) k/uL Neutrophils # 13.5 H (1.3-7.7) k/uL Monocytes # (0-1.0) k/uL Sodium 126 L (137-145) mmol/L Chloride 88 L (98-107) mmol/L Carbon Dioxide 21 L (22-30) mmol/L BUN 37 H (7-17) mg/dL Creatinine 1.11 H (0.52-1.04) mg/dL Glucose 210 H (74-99) mg/dL POC Glucose (mg/dL) 179 H (70-110) mg/dL AST (14-36) U/L ALT (4-34) U/L Alkaline Phosphatase (38-126) U/L Total Protein (6.3-8.2) g/dL Albumin (3.5-5.0) g/dL 01/12/23 01/12/23 Range/Units 05:45 05:45 WBC 15.6 H (3.8-10.6) k/uL Neutrophils # 12.7 H (1.3-7.7) k/uL Monocytes # (0-1.0) k/uL Sodium 126 L (137-145) mmol/L Chloride 92 L (98-107) mmol/L Carbon Dioxide (22-30) mmol/L BUN 40 H (7-17) mg/dL Creatinine (0.52-1.04) mg/dL Glucose 128 H (74-99) mg/dL POC Glucose (mg/dL) (70-110) mg/dL AST 1148 H (14-36) U/L ALT 1172 H (4-34) U/L Alkaline Phosphatase 259 H (38-126) U/L Total Protein 5.9 L (6.3-8.2) g/dL Albumin 3.4 L (3.5-5.0) g/dL Microbiology - Last 24 Hours (Table) 01/08/23 21:30 Blood Culture - Preliminary Blood 01/08/23 21:15 Blood Culture - Preliminary Blood
[2023-01-12] MEDS: ALBUTEROL HFA INHALER INHALATION PRN (08:42)
--- NOTE | 2023-01-12 08:48 | XR ---
EXAMINATION TYPE: XR chest 1V portable DATE OF EXAM: 01/12/2023 COMPARISON: 01/11/2023 HISTORY: Shortness of breath FINDINGS: There are bilateral pleural effusions with cardiomegaly and bibasilar infiltrate. There is a diffuse interstitial pattern. Osseous structures are stable. Arthropathy of the shoulders with diffuse osteo penia. Biapical pleural thickening. IMPRESSION: 1. Diffuse pleural parenchymal changes most typical of CHF.
[2023-01-12] MEDS: FAMOTIDINE 20 MG TAB PO SCH (09:09)
[2023-01-12] MEDS: MULTIVITAMINS, THERA 1 EACH TAB PO SCH (09:09)
[2023-01-12] MEDS: ASCORBIC ACID 500 MG TAB PO SCH (09:09)
[2023-01-12] MEDS: ASPIRIN 81 MG PO SCH (09:09)
[2023-01-12] MEDS: LORATADINE 10 MG TAB PO SCH (09:10)
[2023-01-12] MEDS: BISOPROLOL 5 MG TAB PO SCH (09:10)
[2023-01-12] MEDS: cycloSPORINE 0.05% OPHTH 0.4 ML DROPERETTE BOTH EYES SCH (09:10)
[2023-01-12] MEDS: CHOLECALCIFEROL 125 MCG (5000 IU) TABLET PO SCH (09:10)
--- NOTE | 2023-01-12 10:04 | P.PN ---
Subjective Progress Note Date: 01/12/23 This is a 77-year-old female patient was hospitalized for worsening shortness of breath. She is known to have CHF with diastolic heart failure and she has been followed up by Dr. Thomas on outpatient basis. Apparently, she does not have any underlying coronary artery disease. The patient came into the hospital because of worsening shortness of breath. No cough. No pleurisy. No hemoptysis. No chest pain. Limited edema lower extremities bilaterally. The WBC count is at 10.9 with a hemoglobin of 12.7, d-dimer is at 1.64, BUN is at 23 with a creatinine of 0.8 and the proBNP level is 4590 and the troponins were 0.05 and 0.05 and 0.44 respectively 3. CTA of the chest showed no evidence of any pulmonary embolism. There is cardiomegaly, interstitial edema and bilateral pleural effusion. EKG showed some ST segment depressions in inferior leads along with V4 through V6. The patient had mildly abnormal LFTs. Nevertheless, the ultrasound the abdomen was essentially negative. Her blood pressure is currently at 91/61. She is an 8L of oxygen by nasal cannula. The patient was started on Lasix 40 mg IV every 12 hours. The patient is also on IV heparin per protocol. On today's evaluation of 01/11/2023, the patient is feeling less short of breath. She is responding nicely to diuresis and the patient is currently on Lasix receiving a dose of 40 mg every 8 hours. Nevertheless, she remains on oxygen at 8 L/m nasal cannula. Echocardiogram was completed yesterday and the patient was found to have severe cardiomyopathy and the patient is a physical e jection fraction was in order of 20-25%. The patient was also found to have severe pulmonary hypertension and right ventricular systolic pressure was estimated to be 57. There was also evidence of severe mitral regurgitation. Patient also severe tricuspid regurgitation. The blood work from today shows a sodium level of 129, BUN is 33 with a creatinine of 0.8 and a potassium level is at 4.7. Rest of the CBC is pending. ProBNP level was 24,700. On 01/12/2023, the patient is in the intensive care unit. Yesterday afternoon, the patient became progressively more short of breath. Her urine output also dropped. She was getting more labored breathing and her oxygen requirements with also on the rise. Based on that, the patient got transferred to the intensive care unit. She was also soft of blood pressure and she was having hypotension and low urine output. At that point, the patient was supported BiPAP at a pressure of 10/5 cm of water. The patient was started on norepinephrine and Lasix drip and subsequently a low-dose dobutamine was also added to regimen. Overnight, the patient's became more comfortable and she started producing adequate urine output. This morning, she is off the BiPAPAnd she is on 12 L of oxygen by nasal cannula. Blood work shows a hemoglobin of 12.7, the white cycles of 15.6 with a platelet count of 250. Sodium is 126 with a potassium level of 4.7, BUN is at 40 with a creatinine of 1.02. She did encounter a shock liver with AST of 1148 and ALT of 1172. Her renal function is stable for now. She is currently on oxygen at 12 L nasal cannula. She is comfortable and she is communicating. Chest exit from today shows bilateral pleural effusion and cardiomegaly and interstitial edema. The norepinephrine is running at 0.07 mcg/kg/m. Lasix drip is running at 5 mg an hour and the patient is also on dobutamine at 2.5 g Objective - Vital Signs Vital signs: Vital Signs Temp 96.8 F L 01/12/23 04:00 Pulse 80 01/12/23 07:30 Resp 26 H 01/12/23 07:30 BP 95/66 01/12/23 07:30 Pulse Ox 98 01/12/23 07:30 FiO2 75 01/12/23 08:28 Intake & Output 01/11/23 01/12/23 01/12/23 18:59 06:59 18:59 Intake Total 659.000 9.681 Output Total 600 615 Balance -600 44.000 9.681 Weight 68.7 kg Intake: IV 55 0.9 55 Intake, IV Titration 254.000 9.681 Amount Norepinephrine 4 mg In 254.000 9.681 Sodium Chloride 0.9% 250 ml @ 0.03 MCG/KG/MIN 7. 201 mls/hr IV .Q24H [facility] Rx#:[id number] Oral 350 Output: Urine 600 615 Other: Voiding Method Indwelling Catheter Indwelling Catheter - Exam GENERAL: The patient is alert and oriented x3, not in any acute distress. Well developed, well nourished. Patient is currently on 12 L of oxygen by nasal cannula and the patient sitting up on a recliner and she seems to be quite comfortable. HEENT: Pupils are round and equally reacting to light. EOMI. No scleral icterus. No conjunctival pallor. Normocephalic, atraumatic. No pharyngeal erythema. No thyromegaly. CARDIOVASCULAR: S1 and S2 present. No murmurs, rubs, or gallops. -PULMONARY: Chest is clear to auscultation, no wheezing bilateral basal crackles. Diminished breath on the lung bases related to pleural effusions bilaterally. ABDOMEN: Soft, nontender, nondistended, normoactive bowel sounds. No palpable organomegaly. MUSCULOSKELETAL: No joint swelling or deformity. -EXTREMITIES: No cyanosis, clubbing, bilateral pitting leg edema, 1+ NEUROLOGICAL: Gross neurological examination did not reveal any focal deficits. SKIN: No rashes. no petechiae. - Labs CBC & Chem 7: 01/12/23 05:45 01/12/23 05:45 Labs: Abnormal Lab Results - Last 24 Hours (Table) 01/11/23 01/11/23 01/11/23 Range/Units 08:51 18:48 19:12 WBC 14.1 H (3.8-10.6) k/uL Neutrophils # 11.5 H (1.3-7.7) k/uL Monocytes # 1.1 H (0-1.0) k/uL Sodium (137-145) mmol/L Chloride (98-107) mmol/L Carbon Dioxide (22-30) mmol/L BUN (7-17) mg/dL Creatinine (0.52-1.04) mg/dL Glucose (74-99) mg/dL POC Glucose (mg/dL) 238 H 179 H (70-110) mg/dL AST (14-36) U/L ALT (4-34) U/L Alkaline Phosphatase (38-126) U/L Total Protein (6.3-8.2) g/dL Albumin (3.5-5.0) g/dL 01/11/23 01/11/23 01/12/23 Range/Units 19:45 19:45 05:45 WBC 15.5 H 15.6 H (3.8-10.6) k/uL Neutrophils # 13.5 H 12.7 H (1.3-7.7) k/uL Monocytes # (0-1.0) k/uL Sodium 126 L (137-145) mmol/L Chloride 88 L (98-107) mmol/L Carbon Dioxide 21 L (22-30) mmol/L BUN 37 H (7-17) mg/dL Creatinine 1.11 H (0.52-1.04) mg/dL Glucose 210 H (74-99) mg/dL POC Glucose (mg/dL) (70-110) mg/dL AST (14-36) U/L ALT (4-34) U/L Alkaline Phosphatase (38-126) U/L Total Protein (6.3-8.2) g/dL Albumin (3.5-5.0) g/dL 01/12/23 Range/Units 05:45 WBC (3.8-10.6) k/uL Neutrophils # (1.3-7.7) k/uL Monocytes # (0-1.0) k/uL Sodium 126 L (137-145) mmol/L Chloride 92 L (98-107) mmol/L Carbon Dioxide (22-30) mmol/L BUN 40 H (7-17) mg/dL Creatinine (0.52-1.04) mg/dL Glucose 128 H (74-99) mg/dL POC Glucose (mg/dL) (70-110) mg/dL AST 1148 H (14-36) U/L ALT 1172 H (4-34) U/L Alkaline Phosphatase 259 H (38-126) U/L Total Protein 5.9 L (6.3-8.2) g/dL Albumin 3.4 L (3.5-5.0) g/dL Microbiology - Last 24 Hours (Table) 01/08/23 21:30 Blood Culture - Preliminary Blood 01/08/23 21:15 Blood Culture - Preliminary Blood Assessment and Plan Plan: Acute decompensated heart failure, systolic dysfunction with mitral regurgitation, severe and secondary respiratory failure, the patient is currently on dobutamine and norepinephrine and the patient is also on Lasix drip at 5 mg an hour. Urine operas improving. This is a new onset cardiomyopathy as the patient's LV ejection fraction and valvular functions have been within normal limits few weeks back. No evidence of any endocarditis. No evidence of an acute myocardial injury.. Acute hypoxic respiratory failure currently the patient is on oxygen at 12 L/m nasal cannula secondary to CHF/pulmonary edema and bilateral pleural effusions, overnight, the patient was supported with BiPAP and the patient was taken off the BiPAP this morning and she is currently on 12 L of oxygen by nasal cannula. Chest x-ray showing bilateral pleural effusions and edema. The patient is on Lasix drip. Shortness of breath, hypoxic respiratory failure versus heart failure exacerbation Acute decompensated systolic heart failure with an ejection fraction of 20-25% Severe pulmonary hypertension secondary to above Severe mitral and tricuspid regurgitation History of congestive heart failure has been followed up with Dr. Thomas on outpatient basis Bilateral pleural effusion secondary to CHF Hypertension Hyperlipidemia Diabetes mellitus type II without any complications Acute shock liver secondary to hypotension and cardiomyopathy Plan Continue diuretics, continue Lasix drip at 5 mg an hour Continue norepinephrine and dobutamine drips for now Patient will be kept in the intensive care unit Titrate oxygen flow to maintain a saturation above 90% We'll transfer this patient to [place] to see her sign language interpreter, Dr. Thomas upon patient a cardiology request. Major being done for the transfer.
[2023-01-12 11:04] VITALS: BMI 25.2
[2023-01-12] MEDS: DAPAGLIFLOZIN PROPANEDIOL 10 MG TABLET PO SCH (11:25)
[2023-01-12] MEDS: FUROSEMIDE 100 MG in SODIUM CHLORIDE 0.9% 90 ML IV SCH (13:17)
[2023-01-12 16:46] VITALS: TEMP 98
[2023-01-12] MEDS ORDERED: oxyBUTYnin chloride 5 MG TAB PO PRN (17:38)
[2023-01-12 18:22] VITALS: BP 95/70; PULSE 99; RESP 23
--- NOTE | 2023-01-13 02:43 | DS ---
DISCHARGE SUMMARY CHIEF COMPLAINT: Shortness of breath. HISTORY OF PRESENT ILLNESS AND PHYSICAL EXAMINATION: Details of this lady's history and physical can be found in the initial workup. LABORATORY STUDIES: While she was in the hospital, she had laboratory studies, details of which can be found in the laboratory section of her chart. COURSE IN THE HOSPITAL: After admission, she was placed on bedrest, started on intravenous fluids and diuretics. Her shortness of breath did not significantly improve. She was seen and followed by Cardiology and Pulmonology. Initially, her troponin was slightly elevated, but her BNP was as high as 16,000. She was too ill to undergo other studies such as cardiac cath and a CATALINA because she could not lie flat without becoming extremely dyspneic. She did not have pain. While she was in the hospital, her liver function started to rise dramatically. Her respirations worsened and she was moved into the intensive care unit, where she was started on BiPAP. There was concern amongst the attending physicians that she was rapidly failing this despite very aggressive treatment. On top of that, her liver enzymes were soaring. She has been seeing a residential glazier in the [place] area and he was contacted and arrangements were made for her to be shipped to [facility]. FINAL DIAGNOSES: 1. Acute congestive heart failure with reduced ejection fraction. 2. Mitral valve insufficiency. 3. Tricuspid valve insufficiency. 4. Multiple sclerosis. 5. Hepatic necrosis. OPERATIONS: None. CONSULTATIONS: Cardiology and Pulmonology. She is not improved. MMODL / IJN: [id number] /
--- NOTE | 2023-01-13 03:58 | PN ---
PROGRESS NOTE DATE OF SERVICE: 01/11/2023 HISTORY OF PRESENT ILLNESS: This lady is not doing well. She is having more and more trouble breathing. She is struggling and she is on high-flow O2. Her EF is between 20 and 25 and she has significant left ventricular dysfunction, mitral and tricuspid insufficiencies. She has also developed gross hematuria. She is anticoagulated, of course. LABORATORY DATA: Laboratory studies reveal white count of 16,100. Her AST is elevated at 80 and ALT is 119. Alkaline phosphatase is up to 267, which is not explained. REVIEW OF SYSTEMS: She states that she can hardly breathe. Cardiology is planning a cardiac cath and CATALINA, but she cannot lie down. PHYSICAL EXAMINATION: VITAL SIGNS: Blood pressure is 80/60. CHEST: Demonstrates decreased breath sounds with dullness at the bases and scattered rales. CARDIAC: Demonstrates tachycardia. ABDOMEN: Slightly distended. EXTREMITIES: There is mild peripheral edema. IMPRESSION: 1. Acute congestive heart failure. 2. Mitral insufficiency. 3. Tricuspid insufficiency. 4. Left ventricular systolic dysfunction (HFrEF). 5. Hypotension. 6. Leukocytosis. 7. Elevated liver enzymes. PLAN: Continue with supportive care. was in the room and he asked a lot of questions about whether or not she should be transferred to a tertiary hospital. He was told that this may be necessary and he will talk to the cosmetologist. MMSRIDEVI / JUAN RAMONN: [id number] /
--- NOTE | 2023-01-13 04:07 | PN ---
PROGRESS NOTE DATE OF SERVICE: 01/12/2023 CHIEF COMPLAINT: HFrEF. HISTORY OF PRESENT ILLNESS: This lady is still struggling. She is doing a little bit better on BiPAP, however. Plan is for her to be transferred now to [facility] where her legal arbitrator practices. PHYSICAL EXAMINATION: CHEST: Breath sounds are still extremely poor with scattered rales. CARDIAC: Demonstrates tachycardia. ABDOMEN: Slightly distended. IMPRESSION: 1. HFrEF. 2. Mitral and try tricuspid insufficiencies. 3. 20% ejection fraction. 4. Multiple sclerosis. PLAN: Await transfer to [facility]. MMODL / IJN: [id number] /
== END 2023-01-12 18:39 | disposition short-term general hospital (02) | DRG 291 ==
LOC: EC 21:04 → 3SCARD 01-09 01:39 → 2SICU 01-11 19:08
PROVIDERS: ADMIT Family Medicine; ATTEND Family Medicine
PROC: 3E033XZ Introduction of Vasopressor into Peripheral Vein, Percutaneous Approach (ICD-10-PCS; principal; 2023-01-11)
PROC: 5A09357 Assistance with Respiratory Ventilation, Less than 24 Consecutive Hours, Continuous Positive Airway Pressure (ICD-10-PCS; principal; 2023-01-11)
DX: I13.0 Hypertensive heart and chronic kidney disease with heart failure and stage 1 through stage 4 chronic kidney disease, or unspecified chronic kidney disease (principal); I50.23 Acute on chronic systolic (congestive) heart failure; J96.01 Acute respiratory failure with hypoxia; J96.02 Acute respiratory failure with hypercapnia; K72.00 Acute and subacute hepatic failure without coma; R18.8 Other ascites; Q24.5 Malformation of coronary vessels; I31.39 Other pericardial effusion (noninflammatory); T83.83XA Hemorrhage due to genitourinary prosthetic devices, implants and grafts, initial encounter; R31.0 Gross hematuria; N18.31 Chronic kidney disease, stage 3a; E11.22 Type 2 diabetes mellitus with diabetic chronic kidney disease; R74.01 Elevation of levels of liver transaminase levels; I42.9 Cardiomyopathy, unspecified; K76.0 Fatty (change of) liver, not elsewhere classified; R77.8 Other specified abnormalities of plasma proteins; E78.5 Hyperlipidemia, unspecified; K21.9 Gastro-esophageal reflux disease without esophagitis; M19.90 Unspecified osteoarthritis, unspecified site; K59.00 Constipation, unspecified; F41.9 Anxiety disorder, unspecified; R79.1 Abnormal coagulation profile; I25.10 Atherosclerotic heart disease of native coronary artery without angina pectoris; G35 Multiple sclerosis; I08.1 Rheumatic disorders of both mitral and tricuspid valves; K76.1 Chronic passive congestion of liver; I27.20 Pulmonary hypertension, unspecified; Z85.79 Personal history of other malignant neoplasms of lymphoid, hematopoietic and related tissues; Z86.16 Personal history of COVID-19; Z79.899 Other long term (current) drug therapy; Z79.84 Long term (current) use of oral hypoglycemic drugs
CPT/HCPCS: 36415; 51702; 71045; 71046; 71275; 76705; 80048; 80053; 80076; 82803; 83605; 83735; 83880; 84132; 84145; 84484; 85025; 85379; 85610; 85730; 87040; 93005; 93306; 94640; 94660; 94760; 96365; 96375; 96376; 99291